=== PATIENT | female | born 1955 | race Caucasian/White ===

== ENCOUNTER 2016-07-19 07:50 | Inpatient (IN) | payer OTHER ==
[2016-07-19] VITALS (18 sets, daily range): BP systolic 93–162; BP diastolic 62–103; PULSE 49–76; RESP 8–20; O2SAT 95–100
[~2016-07-19] VITALS: Ht 144.8 cm; Wt 69.2 kg
[~2016-07-19 07:50] MED LIST: ACET-171 PO; CHOL100045 PO; CeFAZolin 2 Gm/50 mL D5W IV Premix IV ONE; CeFAZolin Inj 2 GM in IV Premix 1 EACH IV SCH; HYDR28.472 TP; LIP40 PO; MELO-253 PO; METO-274 PO; Sodium Chloride LOK Flush 10 mL Syringe IVFLUSH SCH; Vancomycin Dose per Pharmacist XX ONE; Vancomycin Inj 1,000 MG in IV Premix 1 EACH IV ONE
[2016-07-19] MEDS: Lactated Ringer's 1,000 ML IV SCH ×5 (08:00→14:26)
[2016-07-19] MEDS ORDERED: METO-272 PO (08:59)
[2016-07-19] MEDS ORDERED: GABA600T2 PO (08:59)
[2016-07-19] MEDS ORDERED: Ropivacaine-PF 0.5% 30 mL Inj INFILTRATE ONE (10:45)
[2016-07-19] MEDS ORDERED: Lactated Ringer's 500 ML IV PRN (11:17)
[2016-07-19] MEDS ORDERED: Lactated Ringer's 1,000 ML IV SCH (11:17)
--- NOTE | 2016-07-19 11:17 | PCM.HPANE ---
Patient Data Surgeon Admitting Provider: Attending Provider:Gregg Greene DO Primary Care Physician:Jenny Gustafson MD Other Provider:Miladys Higgins Anesthesia Reason for Visit Left Hip Arthritis Ht/WT & BMI Height (Feet): 4 Height (Inches): 9 Weight (Kilograms): 71.39 Body Mass Index 33.00 Allergies Coded Allergies: No Known Allergies (Verified Allergy, Unknown, 07/15/16) Past Anesthesia History Anesthesia History: Denies:: Anesthesia Reactions Diabetes History Hx Diabetes?: No MRSA MRSA: No Medications Blood Thinner: Aspirin Last Dose Blood Thinner: Jul 10, 2016 Hypertension Medication: Yes Home Meds Incl Beta Jenny: Yes (METOPROLOL 100MG ER DAILY) Reported Medications Gabapentin 600 Mg [id number] Mg PO HS Ref 0 07/19/16 Metoprolol Succinate ER 50 Mg Tab.er.24h50 Mg PO HS Ref 0 07/19/16 Cholecalciferol (Vitamin D3) (Vitamin D)1,000 Unit Capsule1,000 Unit PO DAILY # 1 BOTTLE Ref 0 07/15/16 Metoprolol Succinate ER 100 Mg Tab.er.[id number] Mg PO DAILY Ref 0 07/15/16 Meloxicam 15 Mg Tjftao78 Mg PO DAILY 30 Days Ref 0 07/15/16 Hydrocortisone Acetate/Aloe V (Hydrocortisone-Aloe 0.5% Cream)28.4 Gm Cream..g.28.4 Gm TP BID 07/15/16 Atorvastatin (Lipitor)40 Mg Whzvrm23 Mg PO DAILY Ref 0 07/15/16 Acetaminophen 500 Mg Lfaolz329 Mg PO Q6H PRN For Fever 07/15/16 Discontinued Reported Medications Gabapentin 600 Mg Tyfzng613 Mg PO HS Ref 0 07/15/16 History HEENT History: Positive for:: Cataracts Denture Type: Full- Upper Hx of Heart Problems?: Yes Cardiovascular History: Positive for:: Coronary Artery Disease (ELEVATED CHLORESTEROL) Hypertension Hx of Respiratory Problem?: Yes Respiratory History: Positive for:: Pneumonia Hx Neurologic Problems?: No Neurological History: Positive for:: Headaches Hx of GI Problems?: Yes Hx of Problems?: No Skin History: Positive for:: History Skin Disorders? (ECZEMA) Hx Musculoskeletal Problems?: Yes Musculoskeletal History: Positive for:: Degenerative Joint (LEFT KNEE. LEFT HIP) Osteoarthritis Hx of Psycho/Social Problems?: No Hx Surgeries?: Yes (LEFT KNEE SCOPE) Hx Any Other Health Problems?: No Other History: Denies:: Cancer Thyroid Disease History Blood Transfusions: Positive for:: Accept Blood Products? Denies:: Blood Transfusions Hx Diabetes: No Hx Alcohol Use: Yes (SOCIAL)Hx Substance Use: No Stop/Bang S-Snoring: Do You Snore Loudly: Yes T-Tired: feel tired, fatigued: No O-Obsered: Observed not breath: No P-Blood Pressure: treated: Yes B- Body Mass Index > 35 kg/m2: No A- Age over 50: Yes N- Neck Large Circumference: No G- Gender Male: No SHAILESH Total Score: 3 Risk Assessment Category Category 1A: Patient has history of documented sleep apnea, and HAS NOT received any narcotic, sedative or anesthesia administration during this stay. Category 1B: Patient has history of documented sleep apnea, and HAS received any narcotic , sedative or anesthesia administration during this stay Category 2: Patient has SUSPECTED Obstructive Sleep Apnea, and HAS received any narcotic , sedative or anesthesia administration during this stay. Category 3: Patient has SUSPECTED Obstructive Sleep Apnea and HAS NOT received narcotic, sedative or anesthesia administration during this stay. Category 4: Outpatient in Procedural Areas with known sleep apnea or who screen positive for High Risk via the STOP/BANG questionnaire. Exam Exam General Appearance: Alert, Oriented X3, Cooperative, No Acute Distress HEENT/AIRWAY: MP 2 Lungs: Clear to Auscultation, Normal Air Movement Heart: Exam Unremarkable, Regular Rate/Rhythm, No Murmurs/Rubs/Gallops Meds/Labs/Diagnostics Admission Meds Current Medications Lactated Ringer's (Lr) 1,000 ml @ 10 mls/hr Q24H IV Last administered on t 08:00; Start 07/19/16 at 05:00; Stop 07/23/16 at 08:59 Plan Impression Patient chart reviewed, patient interviewed and anesthestic plan with risks, benefits, and alternatives discussed, and informed consent obtained. NPO Status: >8 hrs ASA Physical Status: ASA2 Mod Systemic Disease Anesthetic Plan: SAB Bene/Risks/Altern/Consents: Yes HP Complete Prior to Induction: Yes Gregg Zamorano MD Jul 19, 2016 08:15
[2016-07-19] MEDS ORDERED: Labetalol 5 mg/mL 4 mL Inj IV PRN (11:20)
[2016-07-19] MEDS ORDERED: EPHEDrine Sulfate 50 mg/mL Inj IVPUSH PRN (11:20)
[2016-07-19] MEDS ORDERED: MetoCLOpramide 5 mg/mL 2 mL Inj IVPUSH PRN (11:20)
[2016-07-19] MEDS ORDERED: Dexamethasone 4 mg/mL Inj IVPUSH PRN (11:20)
[2016-07-19] MEDS ORDERED: Phenylephrine 10,000 mCg/mL Inj IVPUSH PRN (11:20)
[2016-07-19] MEDS ORDERED: Ondansetron 2 mg/mL 2 mL Inj IVPUSH PRN ×2 (11:20→12:25)
[2016-07-19] MEDS ORDERED: Atropine 0.4 mg/mL Inj IVPUSH PRN (11:20)
[2016-07-19] MEDS ORDERED: HYDROmorphone 1 mg/mL Inj IVPUSH PRN (11:20)
[2016-07-19] MEDS ORDERED: hydrALAZINE 20 mg/mL Inj IVPUSH PRN (11:20)
[2016-07-19] MEDS ORDERED: fentaNYL-PF 50 mCg/mL 2 mL Inj IVPUSH PRN (11:20)
[2016-07-19] MEDS ORDERED: diphenhydrAMINE 25 mg Capsule PO PRN (12:25)
[2016-07-19] MEDS ORDERED: Magnesium Hydroxide 10 mL Oral Concentration PO PRN (12:25)
[2016-07-19] MEDS ORDERED: Polyethylene Glycol (PEG) 17 Gm Powder PO PRN (12:25)
--- NOTE | 2016-07-19 13:23 | DRSVH ---
PROCEDURE: X-RAY PELVIS W/LAT HIP (LT) ([id number]) INDICATIONS: post op TECHNIQUE: AP pelvis and lateral view of the left hip acquired. COMPARISON: [facility], , XR PELVIS W LATERAL HIP LT, 05/12/2016, 10:25. FINDINGS: Bones: Patient is status post left hip arthroplasty, with hardware components in expected positions. The hip joint appears congruent. The visualized bony structures appear intact. Soft tissues: Overlying postoperative changes are noted. No suspicious soft tissue densities. IMPRESSION: Status post left hip arthroplasty. Dictated by: Callie Mederos M.D. on 07/19/2016 at 13:22 Approved by: Callie Mederos M.D. on 07/19/2016 at 13:22
[2016-07-19] MEDS ORDERED: Lactated Ringer's 1,000 ML IV ONE (13:52)
[2016-07-19] MEDS ORDERED: fentaNYL-PF 50 mCg/mL 2 mL Inj ONE (14:06)
[2016-07-19] MEDS: 0.9% Sodium Chloride 1,000 ML IV SCH ×2 (14:09→23:51)
[2016-07-19] MEDS ORDERED: Phenylephrine 10,000 mCg/mL Inj ONE (14:22)
[2016-07-19] MEDS ORDERED: Bupiv-Spinal 0.75%/Dex 8.25% 2 mL Inj ONE (14:22)
[2016-07-19] MEDS ORDERED: Propofol 10,000 mCg/mL 20 mL Inj ONE (14:22)
[2016-07-19] MEDS: Ketorolac 15 mg/mL Inj IVPUSH PRN ×2 (15:05→21:12)
[2016-07-19] MEDS: HYDROcodone-APAP 5-325 mg Tablet PO PRN ×2 (15:06→16:29)
[2016-07-19] MEDS: Sodium Chloride LOK Flush 10 mL Syringe IV SCH ×2 (16:02→23:51)
--- NOTE | 2016-07-19 17:02 | PCM.ANEP2 ---
Post Anesthesia Evaluation ASA/CMS Post Anesthesia VS in Patient's Normal Range?: Yes Resp Stable; Airway Patent?: Yes CV Function & Hydration Stable: Yes Mental Status Recovered?: Yes Pain control Satisfactory?: Yes N/V Control Satisfactory?: Yes Gregg Zamorano MD Jul 19, 2016 17:02
--- NOTE | 2016-07-19 17:02 | PCM.ANEP1 ---
Post Anesthesia Phase 1 PACU Phase 1 Assessment Vital Signs Vital Signs Date Time Temp Pulse Resp B/P Pulse Ox O2 Delivery O2 Flow Rate FiO2 07/19/16 14:37 73 20 98 Room Air 07/19/16 14:11 36.0 73 20 147/103 98 Room Air 07/19/16 13:47 16 100 07/19/16 13:45 49 12 121/68 100 Room Air 07/19/16 13:31 11 98 07/19/16 13:30 36.1 59 15 116/80 98 Room Air 07/19/16 13:15 56 12 123/70 98 Room Air 07/19/16 13:05 56 12 110/68 96 Room Air 07/19/16 13:05 12 96 07/19/16 13:00 57 12 110/64 98 Room Air 07/19/16 12:55 36.1 58 8 108/64 96 Room Air 07/19/16 12:49 63 12 105/64 99 Room Air 07/19/16 12:45 63 14 99/66 97 Room Air 07/19/16 12:40 14 95 07/19/16 12:40 65 15 97/70 97 Room Air 07/19/16 12:35 65 16 97/62 98 Room Air 07/19/16 12:30 61 14 93/62 95 Room Air 07/19/16 12:25 36.7 70 14 100/68 96 Room Air Anesthetic Administered: SAB Level of Alertness: Awake, talking KAMARA's with Equal Strength: No (No movement or sensation below groins) Pain: No Pain Scale Score: 9 Nausea or Vomiting: No Oxygen Delivery: Room Air Lungs: Clear to Auscultation, Normal Air Movement Dermatome Level: Full Sensation Gregg Zamorano MD Jul 19, 2016 17:02
--- NOTE | 2016-07-19 17:06 | NUR ---
Post-op and urination Pt. transferred from PACU to [facility] around 1355. On arrival, she was alert and talking. She was unable to feel and move her LEs groin down. She started to feel pain 7-8/10 in the late afternoon. PRN Toradol IV and Vicodin PO didn't bring pain level down. Pt. stated she was in pain and using a bedpan was not possible. Bladder scan showed 900 mL urine retention. Edmond catheter inserted per post-op standing order. Pale clear urine drained to bag. Dr. Greene aware of the above info. He will make adjustment to medications to achieve better pain control.
[2016-07-19] MEDS: HYDROmorphone 1 mg/mL Inj IVPUSH PRN (20:38)
[2016-07-19] MEDS: hydrOXYzine Pamoate 25 mg Capsule PO PRN (20:39)
[2016-07-19] MEDS: CeFAZolin Inj 2 GM in IV Premix 1 EACH IV SCH (20:52)
[2016-07-19] MEDS: MeTOProlol XL 50 mg ER24 Tablet PO SCH (20:58)
[2016-07-19] MEDS: Senna-Docusate 8.6-50 mg Tablet PO SCH (20:59)
--- NOTE | 2016-07-19 22:03 | OP ---
[address] [address] OPERATIVE REPORT PATIENT: BYRON HERRERA : 1955 MR#: [id number] ADMIT: 07/19/2016 JOB ID: [id number] DATE OF SURGERY: 07/19/2016 PREOPERATIVE DIAGNOSIS(ES): Left hip degenerative joint disease. POSTOPERATIVE DIAGNOSIS(ES): Left hip degenerative joint disease. PROCEDURE: Left total hip arthroplasty. SURGEON: Gregg Greene DO. GYRO COMPASS TESTER: Michelle Johnson PA-C. INDICATIONS: The patient is a 60-year-old female with left hip severe degenerative arthritis who has failed conservative measures and wished to proceed with a left total hip arthroplasty. We discussed risks, benefits, and possible complications of surgery, including, but not limited to injury to nerves and vessels, infection, bleeding, incomplete relief of symptoms, stiffness, need for additional procedures. The patient had good understanding. All questions were answered. She wished to A director surgical was required for the successful completion of this procedure. PROCEDURE IN DETAIL: The patient was brought to the operating room. She was given a preoperative antibiotic and spinal anesthetic, placed into the lateral decubitus position. The left hip was sterilely prepped and draped. An incision was made centered over the trochanter in line with the femur. Dissection was carefully carried through the subcutaneous tissue. Electrocautery was used for hemostasis. A split was then made in the iliotibial band in line with the skin incision and the Charnley retractor was then placed. She was noted to have an avulsion of her gluteus medius tendon off of the trochanter at this point. A split was made above this in the gluteus medius, and the remainder of the vastus lateralis was released off of the proximal femur just distal to vastus tubercle. A small triangular portion of capsule was then removed and the hip was then surgically dislocated. A provisional neck cut was made about a fingerbreadth above the level of the lesser trochanter and the femoral head was removed. The femur was then prepared beginning with the box osteotome and broached. This was sequentially broached up to a size 4, which seemed to have a bit of space proximally but be tight distally. I tried to broach up to a 5, but it was, I felt, going to be too much of gap to make up and would risk fracture. Therefore, I elected to go with a size 4, which fit fairly well and had good rotational stability. A calcar planer was used to smooth the top of the femur. Next, anterior and posterior acetabular retractors were placed and the pulvinar was removed as was the labrum. The hip was then reamed sequentially up to a 51. I elected to place a [place] 52 shell. Care was taken to ensure the appropriate abduction and anteversion and a single superior dome screw was used to add additional fixation which had excellent purchase. We then did some trials initially with a 36 lateralized liner and then with a 32 neutral liner, and I felt that the 32 neutral liner, coupled with the Depuy Tri-Lock 4 stem and +5 head seemed to equal out her leg lengths, allow for great range of motion and stability. Therefore, these components were chosen and impacted into position. The wound was then closed with #5 Ethibond to close the capsule. The gluteus medius was repaired. I made drill holes into the trochanter to repair the gluteus medius back to the trochanter, and the vastus lateralis was then repaired with #1 Surgilon. The iliotibial band was repaired with #1 running Surgilon and 0-Vicryl. The subcu was closed with a 2-0 V-Loc and the skin was closed with a running subcuticular 3-0 V-Loc. Naropin was added as an adjunct local anesthetic. Sterile dressings were applied. Patient tolerated the procedure well. Blood loss was 100 cc. POSTOPERATIVE PROTOCOL: Have the patient weightbear to tolerance. Use a walker for ambulation. Ice and elevate. Will plan to use aspirin for DVT prophylaxis.
[2016-07-20] MEDS: hydrOXYzine Pamoate 25 mg Capsule PO PRN ×2 (01:31→20:26)
[2016-07-20 01:33] VITALS: BP 107/59; PULSE 60; RESP 18; O2SAT 100
[2016-07-20] MEDS: Ketorolac 15 mg/mL Inj IVPUSH PRN (03:16)
[2016-07-20] MEDS: CeFAZolin Inj 2 GM in IV Premix 1 EACH IV SCH (03:24)
[2016-07-20 06:37] VITALS: BP 104/71; PULSE 80; RESP 18; O2SAT 98
[2016-07-20 07:12] LABS: BASOPHILS % (AUTO) 0.2 % (0-3); EOSINOPHILS % (AUTO) 0.9 % (0-5); MONOCYTES % (AUTO) 8.6 % (4-12); Mean Corpuscular Hemoglobin 32.6 pg (27.0-35.0); Mean Corpuscular Volume 100.3 fL (81-100); NEUTROPHILS % (AUTO) 70.2 % (40-74); Platelet Count 195 bil/L (150-400)
[2016-07-20] MEDS: MeTOProlol XL 50 mg ER24 Tablet PO SCH ×2 (07:41→21:00)
[2016-07-20] MEDS: Senna-Docusate 8.6-50 mg Tablet PO SCH ×2 (07:42→20:28)
[2016-07-20] MEDS: 0.9% Sodium Chloride 1,000 ML IV SCH ×2 (07:45→14:35)
[2016-07-20] MEDS: Sodium Chloride LOK Flush 10 mL Syringe IV SCH ×2 (07:45→16:15)
--- NOTE | 2016-07-20 10:25 | PCM.PNORTH ---
Subjective Date of Service: Jul 20, 2016 Visit Information: Reason for Visit Left Hip Arthritis Surgery/Surgery Date LEFT TOTAL HIP 07/19/16 Post-Op Day # Date of Admission: Jul 19, 2016 at 14:06 Hospital Day # Subjective Found patient alert and awake and sitting up in bed. No complaints of pain at this time. Discussed participation with formal physical therapy as well as discharge plans. Patient indicates that she has a spouse at home which will be helpful to her on discharge. She also indicates she has approximately 10 steps to get to the main floor of her home. She indicates when she is on the main floor she will not have to use steps except to leave the home. She also indicates that her and 2 strong friends had already made plans to move her upstairs in her wheelchair. Patient is anticipating discharge to home with spouse as caregiver. I have talked to her about the pros and cons of these issues and advised her to discuss this with formal physical therapy. I also discussed with patient that her procedure was elective which would preclude her from transferring to a jail facility. She is aware of this and will work with physical therapy on attaining a recommendation for discharge to home if appropriate. Postop General: No Complaints, No Shortness of Breath, No Chest Pain, Good Appetite Pain Management: PO Objective Exam Objective Orientation: Alert and oriented 3 and pleasant. Dressing: Interoperative dressing is clean dry and intact. Wound: Wound is not observed today. Compartments: Thigh and calf are soft and nontender. Mobility/sensation: Mobility and sensation are intact at left lower extremity distally. Edmond: Absent Drain: Absent Gait: Transfered to be VT on postop day 1. No gait with physical therapy and as of this time. Vital Signs and I/O Vital Sign - Last Date Time Temp Pulse Resp B/P Pulse Ox O2 Delivery O2 Flow Rate FiO2 07/20/16 08:19 Supplement Oxygen 07/20/16 06:37 36.8 80 18 104/71 98 07/20/16 01:33 2.00 Intake and Output 07/19/16 07/19/16 07/20/16 Cumulative From/Thru 15:00 23:00 07:00 07/15/16 10:09 - 07/19/16 18:32 Intake Total 2550 ml 1353 ml 3903 ml Output Total 100 ml 750 ml 850 ml Balance 2450 ml 603 ml 3053 ml Intake Oral 1000 ml 1000 ml IV Total 2550 ml 353 ml 2903 ml Output Urine Total 750 ml 750 ml Estimated Blood Loss 100 ml 100 ml Lab & Micro Results Laboratory Tests Test 07/20/16 06:20 White Blood Count 6.4th/mm3 (3.8-10.1) Red Blood Count 2.98mil/mm3 (3.90-5.20) Hemoglobin 9.7g/dL (12.0-15.6) Hematocrit 29.9% (35.0-46.0) Mean Corpuscular Volume 100.3fL (81-100) Mean Corpuscular Hemoglobin 32.6pg (27.0-35.0) Mean Corpuscular Hemoglobin Concent 32.4% (32.0-37.0) Red Cell Distribution Width 12.3% (12.3-15.4) Platelet Count 195bil/L (150-400) Neutrophils (%) (Auto) 70.2% (40-74) Lymphocytes (%) (Auto) 19.9% (14-46) Monocytes (%) (Auto) 8.6% (4-12) Eosinophils (%) (Auto) 0.9% (0-5) Basophils (%) (Auto) 0.2% (0-3) Sodium Level 135mEq/L (134-144) Potassium Level 3.5mEq/L (3.5-5.2) Chloride Level 98mEq/L (97-108) Carbon Dioxide Level 26mmol/L (18-29) Blood Urea Nitrogen 7mg/dL (8-27) Creatinine 0.92mg/dL (0.57-1.00) Estimat Glomerular Filtration Rate 89mL/min (>59) Glucose Level 142mg/dL (60-99) Calcium Level 8.2mg/dL (8.5-10.1) Result Diagram: 07/20/1661907/20/16619 General Appearance: Alert, Oriented X3, Cooperative, No Acute Distress Extremities: No Compartment Syndrom Noted, Thigh & Calf Soft/Nontender Postop Sensory Motor: Distal Motor Intact, Movement in Toes, Distal Sensation Intact Activity: Activity per PT, Ambulate with PT (weightbearing as tolerated on the left lower extremity using a front wheeled walker.) Catheters: None Assessment & Plan Plan Postop day # 1 from a left total hip arthroplasty uncemented performed on 04/[address] Gregg Greene. Weight bearing status: Weightbearing as tolerated on the left lower extremity. Mobility aid: Front wheeled walker Immobilization: None Precautions: Abduction wedge between legs while in bed Physical therapy: Continue formal physical therapy for mobility, gait and safety. Patient indicates she has 10 steps to enter the main living floor of her home and at that point would be free of any stairs until she needs to leave the home. Patient also indicates she has 3 strong men available which have already made a plan to get her into her home using her wheelchair. Pain control: Continue by mouth pain medication as needed with Percocet 5 for [place] 5. DVT prophylaxis: Continue ASA 325 mg EC by mouth twice a day 6 weeks postop for DVT prophylaxis. Wound care: Infectious DZ: None Edmond: Absent Dressing: Interoperative dressing is clean dry and intact. Dressing will be changed on postop day 2. Drain: Absent Nursin-week follow-up: Follow-up in 2 weeks at [facility] orthopedic clinic with mid-level provider for wound check and suture removal. 6-week follow-up: Follow-up in 6 weeks at [facility] orthopedic clinic with Dr. Gregg Greene with AP pelvis and left crosstable lateral hip x-rays on arrival. Discharge plan: Anticipate discharge to home on postop day 3, 07/22/2016 with spouse as caregiver. VTE Prophylaxis: SCDs, BRANDEN Bunch, Other (ASA 325 mg EC by mouth twice a day 6 weeks postop for DVT prophylaxis.) Kevin eHck PA-C Jul 20, 2016 10:25
[2016-07-20] MEDS: oxyCODONE-Acetamin 5-325 mg Tablet PO PRN ×2 (10:26→17:28)
--- NOTE | 2016-07-20 10:47 | NUR ---
Evaluation completed. Please go to "Notes" then click on "Assessments and Notes" (bottom left corner of screen). Then select appropriate discipline tab on top of screen.
--- NOTE | 2016-07-20 13:25 | NUR ---
Social Work Brief Note: EMR reviewed. Patient is a 60 year old female admitted inpatient on 07/19/16 for left hip arthritis. Patient post op day 1 for left total hip. Patient payer as [employer]. Patient emergency contact listed as Mick, . Patient PCP as MD Gustafson. Patient participated with PT. PT to further assess for discharge recommendations. Plans for home vs SNF pending further progression. Patient only ambulated a few steps and mod assist. Patient has cane and walker available for home use. SW will continue to review therapy notes to determine progression. SW provided patient with HHC/SNF choice list for review. SW to follow. PLAN: Home with vs R/O HHC vs SNF, pending further PT eval and clinical course Branden JIMENEZ
[2016-07-20 14:56] VITALS: BP 74/46; PULSE 70; RESP 16; O2SAT 93
[2016-07-20 16:52] VITALS: BP 91/55
--- NOTE | 2016-07-20 17:42 | NUR ---
low BP Pt bp low this afternoon. Fluids turned back on for a brief time. Blood pressure returned to 90's/50/s. Percocet given for pain and this is effective. Pt up in chair today and worked with PT and OT. Eating well, using IS.
[2016-07-20] MEDS: HYDROmorphone 1 mg/mL Inj IVPUSH PRN (20:20)
[2016-07-20 21:01] VITALS: BP 91/58; PULSE 69; RESP 18; O2SAT 97
[2016-07-20] MEDS: HYDROcodone-APAP 5-325 mg Tablet PO PRN (21:42)
[2016-07-21] MEDS: Sodium Chloride LOK Flush 10 mL Syringe IV SCH ×4 (00:30→23:52)
[2016-07-21] MEDS: HYDROcodone-APAP 5-325 mg Tablet PO PRN ×4 (01:45→21:08)
[2016-07-21] MEDS: 0.9% Sodium Chloride 1,000 ML IV SCH ×3 (04:25→22:56)
[2016-07-21 05:51] VITALS: BP 100/66; PULSE 89; RESP 18; O2SAT 93
[2016-07-21 06:44] LABS: BASOPHILS % (AUTO) 0.3 % (0-3); EOSINOPHILS % (AUTO) 1.5 % (0-5); MONOCYTES % (AUTO) 8.2 % (4-12); NEUTROPHILS % (AUTO) 63.8 % (40-74); Platelet Count 195 bil/L (150-400)
[2016-07-21] MEDS: Senna-Docusate 8.6-50 mg Tablet PO SCH ×2 (08:20→20:30)
[2016-07-21] MEDS: MeTOProlol XL 50 mg ER24 Tablet PO SCH ×2 (08:20→20:57)
[2016-07-21] MEDS: hydrOXYzine Pamoate 25 mg Capsule PO PRN (08:29)
[2016-07-21 12:05] VITALS: BP 77/51; PULSE 81; RESP 16; O2SAT 98
[2016-07-21] MEDS ORDERED: 0.9% Sodium Chloride 500 ML IV SCH (13:10)
[2016-07-21 13:12] VITALS: BP 108/68
--- NOTE | 2016-07-21 15:51 | NUR ---
Social Work: Discharge planning Data & Assessment: Dining Room Coordinator met with patient at bedside to request Home Health choice. Patient stated that she has not made a decision and requested that the Dining Room Coordinator follow-up with her tomorrow after she has had a chance to discuss options with her spouse. disc pad knockout worker will follow-up with patient tomorrow for Home Health choice. Plan: Dining Room Coordinator will follow-up with patient on 07/22/15 for home health choice. Ariadna Larson LMSW, ACM
--- NOTE | 2016-07-21 18:05 | PCM.PNORTH ---
Subjective Date of Service: Jul 21, 2016 Visit Information: Reason for Visit Left Hip Arthritis Surgery/Surgery Date LEFT TOTAL HIP 07/19/16 Post-Op Day # 2 Date of Admission: Jul 19, 2016 at 14:06 Hospital Day # Subjective Patient's blood pressure has been low. It was thought that this was partially due to narcotic use and thus patient has been switched from Percocet to [place]. Patient states her pain level has been very high since the switch. She states that after physical therapy, her pain was better. Patient states she has been drinking fluids often and admits that at home her BP fluctuates. She states her and her doctor were struggling with getting it controlled prior to her surgery so she is "not surprised," She was able to perform with PT with little dizziness. Postop General: No Complaints, No Shortness of Breath, No Chest Pain, Good Appetite Pain Management: PO Objective Exam Objective Patient laying in bed Vital Signs and I/O Vital Sign - Last Date Time Temp Pulse Resp B/P Pulse Ox O2 Delivery O2 Flow Rate FiO2 07/21/16 14:00 Room Air 07/21/16 13:12 108/68 07/21/16 12:05 36.7 81 16 98 07/20/16 01:33 2.00 Intake and Output 07/20/16 07/20/16 07/21/16 Cumulative From/Thru 15:00 23:00 07:00 07/15/16 10:09 - 07/21/16 06:13 Intake Total 600 ml 1370 ml 200 ml 6073 ml Output Total 800 ml 200 ml 450 ml 2300 ml Balance -200 ml 1170 ml -250 ml 3773 ml Intake Oral 600 ml 920 ml 200 ml 2720 ml IV Total 450 ml 3353 ml Output Urine Total 800 ml 200 ml 450 ml 2200 ml Estimated Blood Loss 100 ml # Voids 2 2 # Bowel Movements 0 0 0 Lab & Micro Results Laboratory Tests Test 07/21/16 06:25 White Blood Count 6.1th/mm3 (3.8-10.1) Red Blood Count 2.91mil/mm3 (3.90-5.20) Hemoglobin 9.6g/dL (12.0-15.6) Hematocrit 28.8% (35.0-46.0) Mean Corpuscular Volume 99.0fL (81-100) Mean Corpuscular Hemoglobin 33.0pg (27.0-35.0) Mean Corpuscular Hemoglobin Concent 33.3% (32.0-37.0) Red Cell Distribution Width 12.1% (12.3-15.4) Platelet Count 195bil/L (150-400) Neutrophils (%) (Auto) 63.8% (40-74) Lymphocytes (%) (Auto) 26.0% (14-46) Monocytes (%) (Auto) 8.2% (4-12) Eosinophils (%) (Auto) 1.5% (0-5) Basophils (%) (Auto) 0.3% (0-3) Sodium Level 134mEq/L (134-144) Potassium Level 4.2mEq/L (3.5-5.2) Chloride Level 99mEq/L (97-108) Carbon Dioxide Level 23mmol/L (18-29) Blood Urea Nitrogen 12mg/dL (8-27) Creatinine 0.94mg/dL (0.57-1.00) Estimat Glomerular Filtration Rate 86mL/min (>59) Glucose Level 103mg/dL (60-99) Calcium Level 8.3mg/dL (8.5-10.1) Result Diagram: 07/21/1662407/21/16624 General Appearance: Alert, Oriented X3, Cooperative, No Acute Distress Extremities: Distal Pulses Palpable, Warm, No Compartment Syndrom Noted Postop Sensory Motor: Distal Motor Intact, Movement in Toes, Distal Sensation Intact, NVI Distally SURGICAL WOUND : Wound Location/Description Skin is approximated, appears to be healing well. Absent of erythema and drainage. Steri-strips in place. Incision General Appearance: Steri Strips, Well Approximated, Incision Healing Dressing & Drainage Status: Changed Activity: Activity per PT, Ambulate with PT (weightbearing as tolerated on the left lower extremity using a front wheeled walker.) Catheters: None Assessment & Plan Impression POD#2 Left total hip arthroplasty Problems: Plan Weightbearing: Weightbearing as tolerated with a front wheeled walker DVT prophylaxis: Aspirin 325mg BID x6 weeks. Physical therapy for transfers, progressive ambulation, strengthening Wound care: Dressing was changed today. Change if saturated in future. Analgesia: Continue oral pain management Discharge plan: Discharge home in 1-2 days. Start outpatient physical therapy next week. Follow-up plan: In 2 weeks at [facility] with AVEL for wound check and at [address] Greene with x-rays VTE Prophylaxis: SCDs, BRANDEN Bunch, Other (ASA 325 mg EC by mouth twice a day 6 weeks postop for DVT prophylaxis.) Shireen Ramírez PA-C Jul 21, 2016 18:05
--- NOTE | 2016-07-21 19:19 | NUR ---
Blood Pressure, Bowel Movement Patient continues to have somewhat low blood pressures. Patient states that she occasionally had some dizziness but was able to ambulate to the bathroom and work with PT. MD/PA aware, 500 ml bolus given. Care is ongoing. Patient had one bowel movement today, care is ongoing.
[2016-07-21 19:41] VITALS: BP 120/71; PULSE 91; RESP 18; O2SAT 96
[2016-07-22] MEDS: HYDROcodone-APAP 5-325 mg Tablet PO PRN ×2 (03:11→14:59)
--- NOTE | 2016-07-22 05:59 | NUR ---
Mobility / Pain Ambulating slow and steady with FWW to BR. Pain adequately controlled with mix of Tylenol alone or one [place]. B/P has remained within normal limits. Hourly rounding ongoing.
[2016-07-22 06:01] VITALS: BP 109/71; PULSE 73; RESP 20; O2SAT 97
[2016-07-22] MEDS: Senna-Docusate 8.6-50 mg Tablet PO SCH (08:05)
[2016-07-22] MEDS: MeTOProlol XL 50 mg ER24 Tablet PO SCH (08:05)
[2016-07-22] MEDS: Sodium Chloride LOK Flush 10 mL Syringe IV SCH (08:05)
--- NOTE | 2016-07-22 09:39 | PCM.PNORTH ---
Subjective Date of Service: Jul 22, 2016 Visit Information: Reason for Visit Left Hip Arthritis Surgery/Surgery Date LEFT TOTAL HIP 07/19/16 Post-Op Day # Date of Admission: Jul 19, 2016 at 14:06 Hospital Day # Subjective Found patient awake and alert and sitting up in chair beside the bed. No complaints pain at this time. Discussed patient's discharge today and possibility of home health. Also discussed patient's hypotension and encouraged her to push the water and to remain upright as much as possible. I have also advised patient to discontinue the use of Mobic and I will strike this medication from her orders. Discussed continued participation with formal physical therapy today to gain a greater distance and perform stair training in anticipation of discharging to home. Postop General: No Complaints, No Shortness of Breath, No Chest Pain, Good Appetite Pain Management: PO Objective Exam Objective Orientation: Alert and oriented 3 and pleasant. Dressing: Interoperative dressing has been changed island-type dressing without the ends trimmed. This dressing is intact and lightly soiled. Anticipate changing this dressing this morning. Wound: Not observed at this time. Compartments: Calf and thigh are soft and nontender. Mobility/sensation: Calf and thigh are soft and nontender. Abduction wedge: None BRANDEN hose: In place Edmond: None Drain: None Gait: Gait 25-50 feet with physical therapy on 07/21/2016. Recommendation for discharge to home with home health. Vital Signs and I/O Vital Sign - Last Date Time Temp Pulse Resp B/P Pulse Ox O2 Delivery O2 Flow Rate FiO2 07/22/16 06:01 36.8 73 20 109/71 97 Room Air 07/20/16 01:33 2.00 Intake and Output 07/21/16 07/21/16 07/22/16 Cumulative From/Thru 15:00 23:00 07:00 07/15/16 10:09 - 07/22/16 06:37 Intake Total 2290 ml 800 ml 9163 ml Output Total 1200 ml 820 ml 4320 ml Balance 1090 ml -20 ml 4843 ml Intake Oral 1790 ml 800 ml 5310 ml IV Total 500 ml 3853 ml Output Urine Total 1200 ml 820 ml 4220 ml Estimated Blood Loss 100 ml # Voids 2 # Bowel Movements 2 3 5 Result Diagram: 07/21/1662407/21/16624 General Appearance: Alert, Oriented X3, Cooperative, No Acute Distress Extremities: No Compartment Syndrom Noted, Thigh & Calf Soft/Nontender Postop Sensory Motor: Distal Motor Intact, Movement in Toes, Distal Sensation Intact SURGICAL WOUND : Incision General Appearance: Steri Strips, Well Approximated, Incision Healing Dressing & Drainage Status: Changed Activity: Activity per PT, Ambulate with PT (weightbearing as tolerated on the left lower extremity using a front wheeled walker.) Catheters: None Assessment & Plan Plan Postop day # 3 from a left total hip arthroplasty uncemented performed on 04/[address] Gregg Greene. Weight bearing status: Weightbearing as tolerated on the left lower extremity. Mobility aid: Front wheeled walker Immobilization: None Precautions: Abduction wedge between legs while in bed . No active abduction 6 weeks postop. Physical therapy: Continue formal physical therapy for mobility, gait and safety. Patient indicates she has 10 steps to enter the main living floor of her home and at that point would be free of any stairs until she needs to leave the home. Patient also indicates she has 3 strong men available which have already made a plan to get her into her home using her wheelchair. In discussion with patient this morning she has agreed to work diligently on stair training today with physical therapy prior to discharge. We also discussed ascending the stairs in a backward fashion while seated and I reinforced this as a good plan rather than carrying her wheelchair. Pain control: Continue by mouth pain medication as needed with Percocet 5 or [place] 5. May also add Vistaril to either one of these is patient needs additional pain control. Discontinued Mobic secondary to 2 aspirin use and not wanting to NSAIDs on the patient. DVT prophylaxis: Continue ASA 325 mg EC by mouth twice a day 6 weeks postop for DVT prophylaxis. Wound care: Keep wound clean dry and covered until seen in office in 2 weeks. Infectious DZ: None Edmond: Absent Dressing: Interoperative dressing has been changed to island-type dressing which has not been trimmed to allow ventilation. New Island dressing with ends trimmed for ventilation to prevent maceration has been applied today. Drain: Absent Nursing: Please work with patient regarding pain control so that she has adequate pain control without the Mobic use. Please send patient home with a few extra Island dressings. 2-week follow-up: Follow-up in 2 weeks at [facility] orthopedic clinic with mid-level provider for wound check and suture removal. 6-week follow-up: Follow-up in 6 weeks at [facility] orthopedic clinic with Dr. Gregg Greene with AP pelvis and left crosstable lateral hip x-rays on arrival. Discharge plan: Discharge to home today on postop day 3, 07/22/2016 with spouse as caregiver. VTE Prophylaxis: [place]imbola, BRANDEN Bunch, Other (ASA 325 mg EC by mouth twice a day 6 weeks postop for DVT prophylaxis.) Kevin Heck PA-C Jul 22, 2016 09:27
--- NOTE | 2016-07-22 09:42 | PCM.DIORTH ---
Ortho Discharge Instruction Date of Service: Jul 22, 2016 Dates of Hospitalization Date of Hospital Admission Jul 19, 2016 at 14:06 Providers Admitting Physician: Gregg Greene DO Primary Care Physician: Jenny Gustafson MD Attending Physician: Gregg Greene DO Diet Discharge Diet: No restrictions Activity Discharge Activity-General: Try not to overdue, Be up and about, Balance rest and activity, Ice incision 3-5 time/day for 20min, Activity as pain allows, Activity as energy allows, No driving while taking narcotic Left Lower Extremity: Weight Bearing as tolerated (no active abduction at the left hip 6 weeks postop.) Discharge Assist Device: Front Wheeled Walker Dressing and Incisional Care Discharge Dressing Care: Keep dressing clean, dry & intact, Change soiled dressing Discharge Hygiene: May shower (patient may shower but dressing should be kept clean and dry.), DO NOT soak incision under water, NO bathtub, hot tub or whirlpool Additional Instructions Discharge Instructions Postop day # 3 from a left total hip arthroplasty uncemented performed on 04/[address] Gregg Greene. Weight bearing status: Weightbearing as tolerated on the left lower extremity. Mobility aid: Front wheeled walker Immobilization: None Precautions: Abduction wedge between legs while in bed . No active abduction 6 weeks postop. Physical therapy: Continue formal physical therapy for mobility, gait and safety. Patient indicates she has 10 steps to enter the main living floor of her home and at that point would be free of any stairs until she needs to leave the home. Patient also indicates she has 3 strong men available which have already made a plan to get her into her home using her wheelchair. In discussion with patient this morning she has agreed to work diligently on stair training today with physical therapy prior to discharge. We also discussed ascending the stairs in a backward fashion while seated and I reinforced this as a good plan rather than carrying her wheelchair. Pain control: Continue by mouth pain medication as needed with Percocet 5 or [place] 5. May also add Vistaril to either one of these is patient needs additional pain control. Discontinued Mobic secondary to 2 aspirin use and not wanting to NSAIDs on the patient. DVT prophylaxis: Continue ASA 325 mg EC by mouth twice a day 6 weeks postop for DVT prophylaxis. Wound care: Keep wound clean dry and covered until seen in office in 2 weeks. Infectious DZ: None Edmond: Absent Dressing: Interoperative dressing has been changed to island-type dressing which has not been trimmed to allow ventilation. New Island dressing with ends trimmed for ventilation to prevent maceration has been applied today. Drain: Absent Nursing: Please work with patient regarding pain control so that she has adequate pain control without the Mobic use. Please send patient home with a few extra Island dressings. 2-week follow-up: Follow-up in 2 weeks at [facility] orthopedic clinic with mid-level provider for wound check and suture removal. 6-week follow-up: Follow-up in 6 weeks at [facility] orthopedic clinic with Dr. Gregg Greene with AP pelvis and left crosstable lateral hip x-rays on arrival. Discharge plan: Discharge to home today on postop day 3, 07/22/2016 with spouse as caregiver. Follow Up Plan Follow Up Plan Follow-up in 2 weeks, 6 weeks and 12 weeks postoperatively. Follow up when necessary in the interim. Follow-up Provider (F9): Gregg Greene DO Follow-up appointment: Weeks (follow-up in 2 weeks at [facility] orthopedic clinic on prearranged appointment for wound check and suture removal.) Call your provider for: Fever, Chills, Shortness of breath, Vomitting, Drainage at incision Kevin Heck PA-C Jul 22, 2016 09:42
[2016-07-22] MEDS ORDERED: HYDR-4003 PO (09:46)
[2016-07-22] MEDS ORDERED: DOCU-41 PO (09:46)
[2016-07-22] MEDS ORDERED: Aspirin-Expunged Drug, Do Not Renew! PO (09:46)
--- NOTE | 2016-07-22 09:48 | PCM.DC.ORT ---
Discharge Summary Date of Service: Jul 22, 2016 Date of Hospital Admission: Jul 19, 2016 at 14:06 Date of Surgery: Jul 19, 2016 Date of Discharge: Jul 22, 2016 Reason for Hospitalization: Severe left hip osteoarthritis Procedures Performed: Left total hip arthroplasty Hospital Course: Patient was admitted through the preoperative care unit on 07/19/2016 and upon processing was taken to the operating room where her procedure was performed without incident. Upon awakening patient was taken to the postoperative care unit and upon recovery from anesthesia was transferred to the orthopedic care unit where she participated well with formal physical therapy and received a recommendation for discharge to home on 07/22/2016. Problems: (1) Hip arthritis Status: Acute ICD Code: M19.90 Disposition: Discharge to home with family has caregivers Orthopedic Follow up Plan: In Two Weeks in my clinic (follow-up in 2 weeks at [facility] [place] [facility]opedic clinic on prearranged appointment with [facility] for wound check and suture removal.) Discharge Instructions: Postop day # 3 from a left total hip arthroplasty uncemented performed on 04/[address] Gregg Greene. Weight bearing status: Weightbearing as tolerated on the left lower extremity. Mobility aid: Front wheeled walker Immobilization: None Precautions: Abduction wedge between legs while in bed . No active abduction 6 weeks postop. Physical therapy: Continue formal physical therapy for mobility, gait and safety. Patient indicates she has 10 steps to enter the main living floor of her home and at that point would be free of any stairs until she needs to leave the home. Patient also indicates she has 3 strong men available which have already made a plan to get her into her home using her wheelchair. In discussion with patient this morning she has agreed to work diligently on stair training today with physical therapy prior to discharge. We also discussed ascending the stairs in a backward fashion while seated and I reinforced this as a good plan rather than carrying her wheelchair. Pain control: Continue by mouth pain medication as needed with Percocet 5 or [place] 5. May also add Vistaril to either one of these is patient needs additional pain control. Discontinued Mobic secondary to 2 aspirin use and not wanting to NSAIDs on the patient. DVT prophylaxis: Continue ASA 325 mg EC by mouth twice a day 6 weeks postop for DVT prophylaxis. Wound care: Keep wound clean dry and covered until seen in office in 2 weeks. Infectious DZ: None Edmond: Absent Dressing: Interoperative dressing has been changed to island-type dressing which has not been trimmed to allow ventilation. New Island dressing with ends trimmed for ventilation to prevent maceration has been applied today. Drain: Absent Nursing: Please work with patient regarding pain control so that she has adequate pain control without the Mobic use. Please send patient home with a few extra Island dressings. 2-week follow-up: Follow-up in 2 weeks at [facility] [place] orthopedic clinic with mid-level provider for wound check and suture removal. 6-week follow-up: Follow-up in 6 weeks at [facility] [place] orthopedic clinic with Dr. Gregg Greene with AP pelvis and left crosstable lateral hip x-rays on arrival. Discharge plan: Discharge to home today on postop day 3, 07/22/2016 with spouse as caregiver. Management Plan: Patient will be seen at 2 weeks, 6 weeks and 12 weeks postoperatively. Patient will be seen when necessary in the interim. ([Aspirin-Expunged Drug, Do Not Renew!]) 325 MG TABLET 325 MG PO BID Atorvastatin (Lipitor) 40 Mg Tablet 40 MG PO DAILY Cholecalciferol (Vitamin D3) (Vitamin D) 1,000 Unit Capsule 1,000 UNIT PO DAILY Docusate Sodium (Colace) 100 Mg Capsule 100 MG PO BID Gabapentin (Gabapentin) 600 Mg Tablet 600 MG PO HS Hydrocodone-Acetaminophen 5-325 mg (Hydrocodone-Acetaminophen 5-325 mg) 1 Each Tablet 1-2 TABLET PO Q4-6H PRN PRN For Mild Pain Hydrocortisone Acetate/Aloe V (Hydrocortisone-Aloe 0.5% Cream) 28.4 Gm Cream..g. 28.4 GM TP BID Metoprolol Succinate ER (Metoprolol Succinate ER) 100 Mg Tab.er.24h 100 MG PO DAILY Metoprolol Succinate ER (Metoprolol Succinate ER) 50 Mg Tab.er.24h 50 MG PO HS Kevin Heck PA-C Jul 22, 2016 09:48
--- NOTE | 2016-07-22 10:13 | NUR ---
Social Work Continued Discharge Planning: SW conducted discharge planning update. Order for discharge acknowledged. Plan is home with and HHC services. Patient in agreement and states choice as [facility]. HHC choice list offered previously. SW provided access to [facility]. SW also completed face to face and presented to He. He aware of discharge for today and STOC of services to begin 24-48hrs following discharge. Per patient, and friends to assist with getting into home as patient has stair access. Patient declined arrangements of transport via cabulance. No other needs identified. SW to follow. PLAN: Home with and HHC via [facility], pending clinical course. STOC of C 24-48hrs following discharge today Branden JIMENEZ
[2016-07-22] MEDS: 0.9% Sodium Chloride 1,000 ML IV SCH (10:25)
[2016-07-22 10:29] VITALS: BP 98/70; PULSE 77; RESP 22; O2SAT 100
--- NOTE | 2016-07-22 15:50 | NUR ---
Discharge Orders for discharge received. Patient was made aware of the plan and was agreeable to go. The patient was given her scripts and information regarding her diagnosis and treatment, medications, signs and symptoms to be aware of, follow up instructions, supplies and teaching on dressing changes and mobility limitations and directions. The patient signed understanding of this information. The patient's asymptomatic IV was then removed intact and her belongings were gathered and brought to a private vehicle. The patient then ambulated into a wheelchair and was wheeled to the main entrance where she ambulated into a private vehicle. At the time of discharge the patient was alert and oriented, with no complaints of out of control pain, nausea or other difficulties, blood pressure at a stable level, dressing clean dry and intact.
== END 2016-07-22 15:21 | disposition home health service (06) | DRG 470 ==
LOC: SAS 07:50 → OSC 14:06
PROVIDERS: ADMIT Orthopaedic Surgery; ATTEND Orthopaedic Surgery
PROC: 0SRB04A Replacement of Left Hip Joint with Ceramic on Polyethylene Synthetic Substitute, Uncemented, Open Approach (ICD-10-PCS; principal; 2016-07-19 10:15)
DX: M16.12 Unilateral primary osteoarthritis, left hip (principal); I10 Essential (primary) hypertension; I25.10 Atherosclerotic heart disease of native coronary artery without angina pectoris; E78.5 Hyperlipidemia, unspecified

== ENCOUNTER 2017-03-21 08:06 | Inpatient (IN) | payer OTHER ==
[2017-03-21] VITALS (10 sets, daily range): BP systolic 114–144; BP diastolic 64–82; PULSE 54–63; RESP 12–18; O2SAT 94–99
[~2017-03-21] VITALS: Ht 144.8 cm; Wt 69.6 kg
[2017-03-21] MEDS: Lactated Ringer's 1,000 ML IV SCH ×3 (05:00→09:52)
[~2017-03-21 08:06] MED LIST changes: -ACET-171 PO; +ACET325T51 PO; +Bupivacaine Liposome 1.3% 20 mL Inj INFILTRATE ONE; -CeFAZolin 2 Gm/50 mL D5W IV Premix IV ONE; +CeFAZolin Inj 2 GM in IV Premix 1 EACH IV ONE; -CeFAZolin Inj 2 GM in IV Premix 1 EACH IV SCH; +DOCU-41 PO; +GABA600T2 PO; -HYDR28.472 TP; -MELO-253 PO; -METO-274 PO; +METO-369 PO; +METO-394 PO; -Sodium Chloride LOK Flush 10 mL Syringe IVFLUSH SCH; -Vancomycin Dose per Pharmacist XX ONE
[2017-03-21] MEDS ORDERED: Bupivacaine-MPF 0.25%/EPI 30 mL Inj INFILTRATE ONE (09:52)
[2017-03-21] MEDS ORDERED: 0.9% Sodium Chloride 10 mL Inj INFILTRATE ONE (09:52)
[2017-03-21] MEDS ORDERED: Bupivacaine Liposome 1.3% 20 mL Inj INFILTRATE ONE (09:52)
[2017-03-21] MEDS ORDERED: Lactated Ringer's 500 ML IV PRN (11:02)
[2017-03-21] MEDS ORDERED: Lactated Ringer's 1,000 ML IV SCH (11:02)
[2017-03-21] MEDS ORDERED: MetoCLOpramide 5 mg/mL 2 mL Inj IVPUSH PRN (11:05)
[2017-03-21] MEDS ORDERED: Atropine 0.4 mg/mL Inj IVPUSH PRN (11:05)
[2017-03-21] MEDS ORDERED: HYDROmorphone 1 mg/mL Inj IVPUSH PRN ×2 (11:05→12:00)
[2017-03-21] MEDS ORDERED: Ondansetron 2 mg/mL 2 mL Inj IVPUSH PRN ×2 (11:05→12:00)
[2017-03-21] MEDS ORDERED: Phenylephrine 10,000 mCg/mL Inj IVPUSH PRN (11:05)
[2017-03-21] MEDS ORDERED: Labetalol 5 mg/mL 20 mL Inj IV PRN (11:05)
[2017-03-21] MEDS ORDERED: fentaNYL-PF 50 mCg/mL 2 mL Inj IVPUSH PRN (11:05)
[2017-03-21] MEDS ORDERED: EPHEDrine Sulfate 50 mg/mL Inj IVPUSH PRN (11:05)
--- NOTE | 2017-03-21 11:05 | PCM.HPANE ---
Patient Data Surgeon Admitting Provider: Attending Provider:Gregg Greene DO Primary Care Physician:Jenny Gustafson MD Other Provider:Miladys Higgins Anesthesia Reason for Visit Left Knee Arthritis Ht/WT & BMI Height (Feet): 4 Height (Inches): 9.00 Weight (Kilograms): 69.600 Body Mass Index 33.00 Allergies Coded Allergies: No Known Allergies (Verified Allergy, Unknown, 03/14/17) Past Anesthesia History Anesthesia History: Denies:: Abnormal Airway, Anesthesia Reactions, Difficult Intubation, Fam Anesthesia Reaction, Fam Malignant Hypertherm, Malignant Hyperthermia Diabetes History Hx Diabetes?: No MRSA MRSA: No Medications Blood Thinner: Aspirin Last Dose Blood Thinner: Feb 28, 2017 Hypertension Medication: Yes (metoprolol) Home Meds Incl Beta Jenny: Yes Date Beta Jenny Taken: Mar 20, 2017 Time Beta Jenny Taken: 1999 Active Scripts Docusate Sodium (Colace)100 Mg [id number] Mg PO BID constipation #30 CAPSULE Prov:Kevin Heck PA-C 07/22/16 Reported Medications Acetaminophen 325 Mg [id number] Mg PO BID PRN For Fever Ref 0 03/14/17 Gabapentin 600 Mg [id number] Mg PO HS Ref 0 07/19/16 Metoprolol Succinate ER 50 Mg Tab.er.24h50 Mg PO HS Ref 0 07/19/16 Cholecalciferol (Vitamin D3) (Vitamin D)1,000 Unit Capsule1,000 Unit PO DAILY # 1 BOTTLE Ref 0 07/15/16 Metoprolol Succinate ER 100 Mg Tab.er.07m120 Mg PO DAILY Ref 0 07/15/16 Atorvastatin (Lipitor)40 Mg [id number] Mg PO DAILY Ref 0 07/15/16 Discontinued Reported Medications Hydrocortisone Acetate/Aloe V (Hydrocortisone-Aloe 0.5% Cream)28.4 Gm Cream..g.28.4 Gm TP BID 07/15/16 Discontinued Scripts Hydrocodone-Acetaminophen 5-325 mg 1 Each Tablet1-2 Tablet PO Q4-6H PRN For Mild Pain #80 TABLET Prov:Kevin Heck PA-C 07/22/16 [Aspirin] 325 MG TABLET No Conflict [id number] Mg PO BID DVT prophylaxis #1 BOTTLE Prov:Kevin Heck PA-C 07/22/16 History History of ENT Problems?: No HEENT History: Denies:: Abnormal Airway Cataracts (repaired) Difficult Intubation Dysphagia Glaucoma Hearing Problem Sinus Problem TMJ Denture Type: Full- Upper Teeth Condition: Within Normal Limits Hx of Heart Problems?: Yes Cardiovascular History: Positive for:: Hypertension Other History/Comments No CP or hx [place] Hx of Respiratory Problem?: No Respiratory History: Positive for:: Pneumonia (10 yrs ago) Denies:: Use of C-PAP Machine Use of Inhalers / NEBS Hx Neurologic Problems?: No Neurological History: Denies:: Alzheimer's Disease CVA Dementia Dizziness Headaches Multiple Sclerosis Parkinson's Disease Seizures TIA Hx of GI Problems?: No Hx of Problems?: No Genitourinary History: Denies:: HX of Hemodialysis Urinary Tract Infection HX of Peritoneal Dialysis: No Female Hx: Denies:: Problems with Breasts? Skin History: Positive for:: History Skin Disorders? (Eczema) Denies:: Pressure Ulcers Hx Musculoskeletal Problems?: Yes Musculoskeletal History: Positive for:: Degenerative Joint Joint Replacement (L Hip) Osteoarthritis Denies:: Back Injury Fibromyalgia Musculoskeletal Trauma Myasthenia Gravis Rheumatoid Arthritis Systemic Lupus Hx of Psycho/Social Problems?: No Hx Surgeries?: Yes (Hip fracture) Hx Any Other Health Problems?: No Other History: Positive for:: Hospitalization (Jul 2016 Hip fracture) Denies:: Cancer Endocrine Disease Thyroid Disease History Blood Transfusions: Positive for:: Accept Blood Products? Denies:: Blood Transfusions Hx Diabetes: No Hx Alcohol Use: YesAlcoholic Drinks Per Day: 1-2 glasses of wine a weekHx Substance Use: No Stop/Bang S-Snoring: Do You Snore Loudly: No T-Tired: feel tired, fatigued: No O-Obsered: Observed not breath: No P-Blood Pressure: treated: Yes B- Body Mass Index > 35 kg/m2: No A- Age over 50: Yes N- Neck Large Circumference: No G- Gender Male: No SHAILESH Total Score: 2 Risk Assessment Category Category 1A: Patient has history of documented sleep apnea, and HAS NOT received any narcotic, sedative or anesthesia administration during this stay. Category 1B: Patient has history of documented sleep apnea, and HAS received any narcotic , sedative or anesthesia administration during this stay Category 2: Patient has SUSPECTED Obstructive Sleep Apnea, and HAS received any narcotic , sedative or anesthesia administration during this stay. Category 3: Patient has SUSPECTED Obstructive Sleep Apnea and HAS NOT received narcotic, sedative or anesthesia administration during this stay. Category 4: Outpatient in Procedural Areas with known sleep apnea or who screen positive for High Risk via the STOP/BANG questionnaire. Exam Exam Vital Signs Vital Signs Date Time Temp Pulse Resp B/P Pulse Ox O2 Delivery O2 Flow Rate FiO2 03/21/17 08:35 36.2 60 16 144/77 97 Room Air 03/21/17 08:22 36.2 60 16 144/77 97 Room Air General Appearance: Alert, Oriented X3 HEENT/AIRWAY: MP 2, Neck Movement (FROM) Lungs: Clear to Auscultation, Clear to Percussion Heart: Exam Unremarkable, Regular Rate/Rhythm Meds/Labs/Diagnostics Admission Meds Current Medications Vancomycin/0.9 % Sod Chloride 1000 mg/Premix 200 ml @ 200 mls/hr PREOP ONCE IV Last administered on 03/21/17 08:35; Start 03/21/17 at 06:00; Stop at 06:59; Status DC Lactated Ringer's (Lr) 1,000 ml @ 120 mls/hr Q8H20M IV Last administered on 08:10; Start 03/21/17 at 05:00; Stop 03/21/17 at 13:19 Plan Impression Patient chart reviewed, patient interviewed and anesthestic plan with risks, benefits, and alternatives discussed, and informed consent obtained. ASA Physical Status: ASA2 Mod Systemic Disease Anesthetic Plan: Regional Block (FNB (adductor canal block) L sided for post- op pain control per surgeon request), SAB Bene/Risks/Altern/Consents: Yes HP Complete Prior to Induction: Yes Wayne Warren MD Mar 21, 2017 09:25
[2017-03-21] MEDS ORDERED: Polyethylene Glycol (PEG) 17 Gm Powder PO PRN (12:00)
[2017-03-21] MEDS ORDERED: Magnesium Hydroxide 10 mL Oral Concentration PO PRN (12:00)
[2017-03-21] MEDS ORDERED: diphenhydrAMINE 25 mg Capsule PO PRN (12:00)
[2017-03-21] MEDS ORDERED: Ketorolac 15 mg/mL Inj IVPUSH PRN (12:00)
[2017-03-21] MEDS ORDERED: Acetaminophen IV 1,000 MG in IV Premix 1 EACH IV ONE (12:00)
--- NOTE | 2017-03-21 12:47 | PCM.ANEP1 ---
Post Anesthesia PACU Phase 1 Assessment Vital Signs Vital Signs Date Time Temp Pulse Resp B/P Pulse Ox O2 Delivery O2 Flow Rate FiO2 03/21/17 12:42 14 99 03/21/17 12:35 56 14 114/69 99 03/21/17 12:30 58 13 118/66 99 03/21/17 12:25 54 12 127/64 99 Room Air 03/21/17 12:20 36.5 59 16 127/64 99 Room Air 03/21/17 08:35 36.2 60 16 144/77 97 Room Air 03/21/17 08:22 36.2 60 16 144/77 97 Room Air Anesthetic Administered: SAB Level of Alertness: Awake, talking KAMARA's with Equal Strength: No (sab) Pain: No Nausea or Vomiting: No CV Function & Hydration Stable: Yes Airway Device: Lungs: Clear to Auscultation, Clear to Percussion Dermatome Level: T12 (Symphysis Pubis) PACU Phase 2 Assessment Complications: No Follow up Care: No Patient Instructions Provided: N/A Wayne Warren MD Mar 21, 2017 12:47
[2017-03-21] MEDS ORDERED: fentaNYL-PF 50 mCg/mL 2 mL Inj ONE (12:54)
[2017-03-21] MEDS ORDERED: Propofol 10,000 mCg/mL 20 mL Inj ONE (12:54)
[2017-03-21] MEDS ORDERED: Glycopyrrolate 0.2 MG/ML 1mL Inj ONE (12:54)
[2017-03-21] MEDS ORDERED: EPHEDrine/NS 5 mg/mL 5 mL Syringe ONE (12:54)
--- NOTE | 2017-03-21 13:04 | DRSVH ---
PROCEDURE: X-RAY LEFT KNEE, ONE OR TWO VIEWS ([id number]) INDICATIONS: post op TECHNIQUE: 2 view(s) of the knee acquired. COMPARISON: None. FINDINGS: Bones: Patient is status post knee joint arthroplasty. Hardware components are in expected position s. Visualized bony structures are intact. Soft tissues: Overlying postoperative changes are noted. IMPRESSION: Expected postsurgical change for left knee arthroplasty. Dictated by: Barbara Ba MD, PhD on 03/21/2017 at 13:03 Approved by: Barbara Ba MD, PhD on 03/21/2017 at 13:03
[2017-03-21] MEDS: 0.9% Sodium Chloride 1,000 ML IV SCH (13:20)
--- NOTE | 2017-03-21 14:27 | NUR ---
POST OP Patient arrived to floor on hospital bed, alert and oriented. Answering all questions appropriately. No c/o nausea or pain. Gave ice chips and ice water. Able to wiggle toes and move feet bilaterally. Left knee wrapped with renata wrap. Good pedal pulse in L foot. SCD on RLE. IV fluids started. Oriented to room.
--- NOTE | 2017-03-21 14:55 | OP ---
[address] [address] OPERATIVE REPORT PATIENT: BYRON HERRERA : 1955 MR#: [id number] ADMIT: 03/21/2017 JOB ID: [id number] DATE OF SURGERY: 03/21/2017 PREOPERATIVE DIAGNOSIS(ES): Left knee degenerative joint disease. POSTOPERATIVE DIAGNOSIS(ES): Left knee degenerative joint disease. PROCEDURE: Left total knee arthroplasty. SURGEON: Gregg Greene DO CUSTOMER LOYALTY REPRESENTATIVE: Smita Johnson PA-C INDICATIONS: The patient is a 61-year-old female with left knee pain secondary to degenerative arthritis with failed conservative measures who wished to proceed with a left total knee arthroplasty. We discussed the risks, benefits, and possible complications of surgery. All questions were answered. She wished to proceed. A surgical dressing maker was required for the successful completion of this procedure. PROCEDURE IN DETAIL: The patient is brought to the operating room. She was given a preoperative antibiotic and 1 g TXA preoperatively. The left lower extremity was sterilely prepped and draped. A tourniquet was used for hemostasis. An incision was made over the anteromedial knee and dissection was carefully carried through the subcutaneous tissue and down onto the proximal medial tibial face. A small subperiosteal medial release was performed. The patella was then everted and the menisci were removed, the anterior portion, as well as a portion of the fat pad. The femur was instrumented with an intramedullary lorna followed by the distal femoral cutting jig with 5 degrees of distal valgus cut angle. I planned for initial resection of 10, but felt that this was inadequate and went up to 12. Next, the tibia was addressed using an extramedullary tibial cutting block. This was cut just below the defect medially, but it was felt to be inadequate and two additional millimeters were resected. Next, the remainder of the menisci were removed and the femur was then sized, felt to be a size 6 with 3 degrees of external rotation. The distal femoral cuts were performed. The box cut was performed. The knee was then trialed and seemed to work well with the six femur, four tibia. She did have a bit of a bony defect on the medial aspect, but it was quite small, less than a cm in size, and I felt this could simply be filled with cement rather than have a sizing mismatch on the femur and tibia. The femur was drilled. The tibia was drilled and punched. The patella was resurfaced with a free hand type technique, cut from an initial thickness of 25 to a thickness of 15. The components were then cemented into position beginning with the DePuy Attune fixed bearing 4 tibia, followed by the DePuy Attune posterior stabilized 6 femur and the 32 mm patellar button. All excess cement was removed and a mixture of Exparel, Marcaine, and saline was added as an adjunct local anesthetic in the posterior knee and into the soft tissues. The tourniquet was then let down after the cement had been allowed to polymerize. We placed a 5 mm thick poly and electrocautery was used for hemostasis. The wound was then again irrigated and closed with #1 Ethibond to repair the capsule, as well as 0-Vicryl and 2-0 to close the subcu. The skin was closed with a running subcuticular Stratafix suture. Sterile dressings were applied. The patient tolerated the procedure well. BLOOD LOSS: 50 mL. POSTOPERATIVE PROTOCOL: Have the patient weightbear to tolerance. Use a walker for ambulation. Will plan to use [place] for postop pain and aspirin for DVT prophylaxis.
[2017-03-21] MEDS: HYDROcodone-APAP 7.5-325 mg Tablet PO PRN ×2 (15:09→19:45)
[2017-03-21] MEDS ORDERED: CeFAZolin Inj 2 GM in IV Premix 1 EACH IV SCH (16:30)
[2017-03-21] MEDS: Sodium Chloride LOK Flush 10 mL Syringe IV SCH ×2 (16:35→23:45)
[2017-03-21] MEDS: CeFAZolin Inj 2 GM in IV Premix 1 EACH IV SCH (18:57)
[2017-03-21] MEDS: Senna-Docusate 8.6-50 mg Tablet PO SCH (20:30)
[2017-03-21] MEDS: MeTOProlol XL 50 mg ER24 Tablet PO SCH (21:32)
[2017-03-22] MEDS: HYDROcodone-APAP 7.5-325 mg Tablet PO PRN ×4 (00:23→21:49)
[2017-03-22] MEDS: 0.9% Sodium Chloride 1,000 ML IV SCH ×3 (00:24→17:59)
[2017-03-22] MEDS: CeFAZolin Inj 2 GM in IV Premix 1 EACH IV SCH (02:35)
--- NOTE | 2017-03-22 04:17 | NUR ---
Pain Pt. reports pain in left knee. PO 2 tabs [place] 7.5 given and effective for pain. Pt. ambulated to bedside commode well, and had a smear BM. Will continue to monitor.
[2017-03-22 04:35] VITALS: BP 113/74; PULSE 62; RESP 16; O2SAT 97
--- NOTE | 2017-03-22 06:23 | NUR ---
Edmond Edmond d/c'd ~ 6 AM. Pt. tolerated procedure well. 10cc of saline taken out of balloon. Pt. education given on voiding trial.
[2017-03-22 07:16] LABS: BASOPHILS % (AUTO) 0.1 % (0-3); EOSINOPHILS % (AUTO) 1.3 % (0-5); MONOCYTES % (AUTO) 8.5 % (4-12); Mean Corpuscular Hemoglobin 33.8 pg (27.0-35.0); Mean Corpuscular Volume 104.5 fL (81-100); Platelet Count 177 bil/L (150-400)
--- NOTE | 2017-03-22 08:04 | PCM.PNORTH ---
Subjective Date of Service: Mar 22, 2017 Visit Information: Reason for Visit Left Knee Arthritis Surgery/Surgery Date LEFT TOTAL KNEE 03/21/17 Post-Op Day # 1 Date of Admission: Mar 21, 2017 at 12:53 Hospital Day # Subjective Patient complains of incisional pain. She has been out of bed twice. Her nurse reports that she has maxed out her Tylenol limitation. She requests oxycodone be ordered as an alternative medication. Postop General: No Shortness of Breath, No Chest Pain, Good Appetite Pain Management: PO Objective Exam Objective Patient is seen sitting up in bed with her at bedside Vital Signs and I/O Vital Sign - Last Date Time Temp Pulse Resp B/P Pulse Ox O2 Delivery O2 Flow Rate FiO2 03/22/17 04:35 36.5 62 16 113/74 97 Room Air Intake and Output 03/21/17 03/21/17 03/22/17 Cumulative From/Thru 15:00 23:00 07:00 03/14/17 12:56 - 03/22/17 06:18 Intake Total 1470 ml 1326 ml 2748 ml 5544 ml Output Total 700 ml 700 ml 850 ml 2250 ml Balance 770 ml 626 ml 1898 ml 3294 ml Intake Oral 840 ml 1500 ml 2340 ml IV Total 1470 ml 486 ml 1248 ml 3204 ml Output Urine Total 650 ml 700 ml 850 ml 2200 ml Estimated Blood Loss 50 ml 50 ml # Bowel Movements 1 1 2 Lab & Micro Results Laboratory Tests Test 03/22/17 06:10 White Blood Count 6.7th/mm3 (3.8-10.1) Red Blood Count 3.14mil/mm3 (3.90-5.20) Hemoglobin 10.6g/dL (12.0-15.6) Hematocrit 32.8% (35.0-46.0) Mean Corpuscular Volume 104.5fL (81-100) Mean Corpuscular Hemoglobin 33.8pg (27.0-35.0) Mean Corpuscular Hemoglobin Concent 32.3% (32.0-37.0) Red Cell Distribution Width 12.9% (12.3-15.4) Platelet Count 177bil/L (150-400) Neutrophils (%) (Auto) 77.0% (40-74) Lymphocytes (%) (Auto) 12.7% (14-46) Monocytes (%) (Auto) 8.5% (4-12) Eosinophils (%) (Auto) 1.3% (0-5) Basophils (%) (Auto) 0.1% (0-3) Sodium Level 137mEq/L (134-144) Potassium Level 4.1mEq/L (3.5-5.2) Chloride Level 101mEq/L (97-108) Carbon Dioxide Level 22mmol/L (18-29) Blood Urea Nitrogen 6mg/dL (8-27) Creatinine 0.65mg/dL (0.57-1.00) Estimat Glomerular Filtration Rate 132mL/min (>59) Glucose Level 105mg/dL (60-99) Calcium Level 8.4mg/dL (8.5-10.1) Result Diagram: 03/22/1760903/22/17609 General Appearance: Alert, Oriented X3, Cooperative, No Acute Distress Extremities: Distal Pulses Palpable, No Compartment Syndrom Noted, Thigh & Calf Soft/Nontender Postop Sensory Motor: Distal Motor Intact, Distal Sensation Intact, NVI Distally SURGICAL WOUND : Wound Location/Description Left knee: Surgical dressing is clean, dry and intact Activity: Activity per PT Catheters: None Assessment & Plan Impression Status post left total knee arthroplasty Problems: Plan Weightbearing: Weightbearing as tolerated with front wheeled walker DVT prophylaxis: aspirin 325 mg twice a day 6 weeks Physical therapy for transfers, progressive ambulation, therapeutic exercise Wound care: PA will change dressing on postop day 2 Mayito burnham DC'romy this morning Analgesia: Oxycodone 5-10 mg by mouth every 4 hours when necessary pain is ordered Discharge plan: Discharge home tomorrow. Start outpatient physical therapy next week Follow-up plan: In 2 weeks at [facility] [place] with AVEL for wound check and at [address] Greene with x-rays Pain Management: [place] 7.5/325 mg, Toradol VTE Prophylaxis: SCDs, Other (aspirin 325 mg twice a day) Resuscitation Status: CPR: Attempt Resuscitation [place]ote[place]Smita Guillen PA-C Mar 22, 2017 08:04
[2017-03-22] MEDS: hydrOXYzine Pamoate 25 mg Capsule PO PRN ×4 (08:08→21:49)
[2017-03-22] MEDS: Sodium Chloride LOK Flush 10 mL Syringe IV SCH ×2 (08:40→17:35)
[2017-03-22] MEDS: Senna-Docusate 8.6-50 mg Tablet PO SCH ×2 (08:45→21:48)
[2017-03-22 08:46] VITALS: BP 105/70; PULSE 67
[2017-03-22] MEDS: MeTOProlol XL 50 mg ER24 Tablet PO SCH ×2 (08:46→21:49)
--- NOTE | 2017-03-22 09:03 | NUR ---
Pain Patient reported 5/10 knee pain, increasing. 10mg of Oxycodone and 25 mg Vistaril given. Denies nausea at this time. Ice applied to knee. Patient repositions self for comfort. Call light and tray table within reach. Will continue to monitor patient hourly.
--- NOTE | 2017-03-22 10:45 | NUR ---
Social Work: Initial Assessment/Readiness for D/C/Multidisciplinary Rounds D: EMR reviewed. Please see Initial Assessment linked to this note for more information. Pt is a 61 year old female admitted [place] for elective left TKA per H&P. Pt's insurance is [employer] [facility]. PCP is Jenny Gustafson MD. Pt discussed in multidisciplinary rounds, pt is POD 1. Pt is likely to discharge home, no needs. PT to continue to work with pt today. SW met with pt at bedside to conduct initial assessment. Pt was alert and oriented x3. SW explained role and wrote phone number on white board. SW provided [facility] Discharge Planning Checklist and encouraged pt to contact SW for any discharge planning questions. Pt lives at home with her spouse in [place]. Pt is independent with all ADLs at baseline. Pt uses no DME at baseline, but has a walker available for use at discharge. Pt drives. Pt has history of [facility] RN PT OT but no SNF history. Pt has no LTC or VA benefits. Pt has no DPOA on file, SW requested copy of pt's DPOA. Pt agreeable. Pt is likely to d/c home with to transport via POV. SW will continue to follow. A: Pt who is independent at baseline and has the capacity for self-care. P: Pt anticipated to discharge home with to transport via POV. No SW needs identified, no MD orders received at this time. PT will continue to work with pt. SW will continue to follow for needs until time of discharge. TONY Good Addendum: 03/22/17 at 1047 by TERRY RAMIREZ Amended: Links added.
[2017-03-22 15:32] VITALS: BP 109/49; PULSE 67; RESP 18; O2SAT 93
[2017-03-22 20:10] VITALS: BP 123/80; PULSE 63; RESP 18; O2SAT 94
[2017-03-23] MEDS: 0.9% Sodium Chloride 1,000 ML IV SCH ×2 (03:18→13:59)
--- NOTE | 2017-03-23 03:45 | NUR ---
Pain Pt. reported severe pain earlier in shift. PO Roxycodone given. Pt. fell asleep afterwards, and has been sleeping well. Will continue to monitor.
[2017-03-23] MEDS: Sodium Chloride LOK Flush 10 mL Syringe IV SCH ×3 (04:48→16:06)
[2017-03-23] MEDS: HYDROcodone-APAP 7.5-325 mg Tablet PO PRN ×4 (04:48→17:09)
[2017-03-23] MEDS: hydrOXYzine Pamoate 25 mg Capsule PO PRN ×3 (04:48→17:09)
[2017-03-23 04:50] VITALS: BP 126/82; PULSE 64; RESP 20; O2SAT 100
[2017-03-23 05:53] LABS: BASOPHILS % (AUTO) 0.1 % (0-3); EOSINOPHILS % (AUTO) 0.7 % (0-5); MONOCYTES % (AUTO) 12.5 % (4-12); Mean Corpuscular Hemoglobin 33.9 pg (27.0-35.0); Mean Corpuscular Volume 104.3 fL (81-100); NEUTROPHILS % (AUTO) 67.8 % (40-74); Platelet Count 186 bil/L (150-400)
--- NOTE | 2017-03-23 08:28 | PCM.PNORTH ---
Subjective Date of Service: Mar 23, 2017 Visit Information: Reason for Visit Left Knee Arthritis Surgery/Surgery Date LEFT TOTAL KNEE 03/21/17 Post-Op Day # 2 Date of Admission: Mar 21, 2017 at 12:53 Hospital Day # Subjective Patient walked a little bit in her room yesterday with therapy. She became quite sleepy after taking oxycodone. She feels more awake and alert today. She is already out of bed and sitting up in a chair. Postop General: No Shortness of Breath, No Chest Pain, Good Appetite Pain Management: PO Objective Exam Objective Patient is seen sitting up in a chair Vital Signs and I/O Vital Sign - Last Date Time Temp Pulse Resp B/P Pulse Ox O2 Delivery O2 Flow Rate FiO2 03/23/17 04:50 36.9 64 20 126/82 100 Room Air Intake and Output 03/22/17 03/22/17 03/23/17 Cumulative From/Thru 15:00 23:00 07:00 03/14/17 12:56 - 03/23/17 06:37 Intake Total 700 ml 700 ml 6944 ml Output Total 200 ml 1650 ml 4100 ml Balance 500 ml -950 ml 2844 ml Intake Oral 700 ml 700 ml 3740 ml IV Total 3204 ml Output Urine Total 200 ml 1650 ml 4050 ml Estimated Blood Loss 50 ml # Voids 2 2 # Bowel Movements 0 0 2 Lab & Micro Results Laboratory Tests Test 03/23/17 05:10 White Blood Count 8.4th/mm3 (3.8-10.1) Red Blood Count 3.04mil/mm3 (3.90-5.20) Hemoglobin 10.3g/dL (12.0-15.6) Hematocrit 31.7% (35.0-46.0) Mean Corpuscular Volume 104.3fL (81-100) Mean Corpuscular Hemoglobin 33.9pg (27.0-35.0) Mean Corpuscular Hemoglobin Concent 32.5% (32.0-37.0) Red Cell Distribution Width 12.8% (12.3-15.4) Platelet Count 186bil/L (150-400) Neutrophils (%) (Auto) 67.8% (40-74) Lymphocytes (%) (Auto) 18.7% (14-46) Monocytes (%) (Auto) 12.5% (4-12) Eosinophils (%) (Auto) 0.7% (0-5) Basophils (%) (Auto) 0.1% (0-3) Sodium Level 139mEq/L (134-144) Potassium Level 4.0mEq/L (3.5-5.2) Chloride Level 103mEq/L (97-108) Carbon Dioxide Level 25mmol/L (18-29) Blood Urea Nitrogen 7mg/dL (8-27) Creatinine 0.85mg/dL (0.57-1.00) Estimat Glomerular Filtration Rate 97mL/min (>59) Glucose Level 100mg/dL (60-99) Calcium Level 8.9mg/dL (8.5-10.1) Result Diagram: 03/23/1750903/23/17509 General Appearance: Alert, Oriented X3, Cooperative, No Acute Distress Extremities: Distal Pulses Palpable, No Compartment Syndrom Noted, Thigh & Calf Soft/Nontender Postop Sensory Motor: Distal Motor Intact, Distal Sensation Intact, NVI Distally SURGICAL WOUND : Wound Location/Description Left knee: Surgical dressing is removed. The wound is well approximated and Steri-Strips are in place. There is no drainage or erythema seen. The wound is cleansed with hydrogen peroxide. The wound is dressed with Silverlon and ABD pad held in place with an renata wrap Activity: Activity per PT Catheters: None Assessment & Plan Impression POD 2 status post left total knee arthroplasty Problems: Plan Weightbearing: Weightbearing as tolerated with front wheeled walker DVT prophylaxis: aspirin 325 mg twice a day 6 weeks Physical therapy for transfers, progressive ambulation, therapeutic exercise Wound care: Dressing changed to silverlon and ABD Patient became quite sleepy with oxycodone yesterday. It may be too strong for her. Analgesia: DC Oxycodone. Recommend staying with [place] and Vistaril Discharge instructions are reviewed with the patient Discharge plan: Discharge home today if she mobilizes better with PT today. Start outpatient physical therapy next week Follow-up plan: In 2 weeks at [facility] with PA for wound check and at [address] Greene with x-rays Pain Management: [place] 7.5, Vistaril, Toradol, oxycodone 5-10 mg VTE Prophylaxis: SCDs, Other (aspirin 325 mg twice a day) Resuscitation Status: CPR: Attempt Resuscitation Smita Johnson PA-C Mar 23, 2017 08:28
[2017-03-23] MEDS: Senna-Docusate 8.6-50 mg Tablet PO SCH (09:06)
[2017-03-23] MEDS: MeTOProlol XL 50 mg ER24 Tablet PO SCH (09:17)
[2017-03-23 09:19] VITALS: BP 105/69; PULSE 69; RESP 18; O2SAT 94
--- NOTE | 2017-03-23 09:25 | PCM.DIORTH ---
Ortho Discharge Instruction Date of Service: Mar 23, 2017 Dates of Hospitalization Date of Hospital Admission Mar 21, 2017 at 12:53 Providers Admitting Physician: Gregg Greene DO Primary Care Physician: Jenny Gustafson MD Attending Physician: Gregg Greene DO Diet Discharge Diet: No restrictions Activity Discharge Activity-General: Try not to overdue, Be up and about, Balance rest and activity, Elevate & ice extremity Left Lower Extremity: Weight Bearing as tolerated Discharge Assist Device: Front Wheeled Walker Dressing and Incisional Care Discharge Dressing Care: Keep dressing clean, dry & intact Discharge Hygiene: May shower (see instructions below) Additional Instructions Discharge Instructions Weightbearing as tolerated with walker Every hour of the day that you awake, get up and move - either do exercises, bending and straightening or walking Start outpatient physical therapy next week Ice and elevate the leg 6-10 times a day Wear the compression stockings for 4 weeks on the left leg and for 2 weeks on the right leg Increase her walking a little more each week On Monday, you may shower if the wound has no drainage present. Wound may be uncovered to shower. Let soap and water run over the wound, pat dry and apply a new dressing. Re-use the Silver dressing and big pad for 1 week. Get the silver pad wet with the saline in the syringe, handle it only be the corners. Reapply with silver side towards the skin, cover with the big square pad. The compressions stockings will hold it in place. Follow Up Plan Follow Up Plan At [facility] in 2 weeks with PA for wound check and at [address] Greene with x-rays Call your provider for: Fever, Chills, Shortness of breath, Vomitting, Drainage at incision (that is increasing), Wound redness (that is spreading), Increasing pain (for no reason) Smita Johnson PA-C Mar 23, 2017 09:25
--- NOTE | 2017-03-23 09:29 | PCM.DC.ORT ---
Discharge Summary Date of Service: Mar 23, 2017 Date of Hospital Admission: Mar 21, 2017 at 12:53 Date of Surgery: Mar 21, 2017 Date of Discharge: Mar 23, 2017 Reason for Hospitalization: Left knee arthritis Procedures Performed: Left total knee arthroplasty Hospital Course: The patient was admitted to the hospital on 03/21/2017 and underwent the above procedure. Antibiotic prophylaxis consisting of Ancef and vancomycin. The surgeon was Dr. Greene. A Edmond was placed perioperatively. Patient tolerated the procedure well and was transferred to recovery room in stable condition. Edmond was discontinued on postop day 1. Patient had physical therapy to work on ambulation and transfers. Weightbearing as tolerated with walker. Pain was managed with Vistaril, Toradol, hydrocodone 7.5. Patient tried oxycodone but it was too strong and made her somnolent. DVT prophylaxis: SCDs, BRANDEN hose and aspirin 325 mg twice a day. Patient progressed well with physical therapy and on POD-2 was discharged home. Follow-up: at [facility] 2 weeks postop for wound check and at [address] Greene with x-ray Diagnosis at Time of Discharge Status post left total knee arthroplasty Problems: Discharge Instructions: Discharge Activity-General: Try not to overdue, Be up and about, Balance rest and activity, Elevate & ice extremity Left Lower Extremity: Weight Bearing as tolerated Discharge Assist Device: Front Wheeled Walker Discharge Dressing Care: Keep dressing clean, dry & intact Discharge Hygiene: May shower (see instructions below) Weightbearing as tolerated with walker Every hour of the day that you awake, get up and move - either do exercises, bending and straightening or walking Start outpatient physical therapy next week Ice and elevate the leg 6-10 times a day Wear the compression stockings for 4 weeks on the left leg and for 2 weeks on the right leg Increase her walking a little more each week On Monday, you may shower if the wound has no drainage present. Wound may be uncovered to shower. Let soap and water run over the wound, pat dry and apply a new dressing. Re-use the Silver dressing and big pad for 1 week. Get the silver pad wet with the saline in the syringe, handle it only be the corners. Reapply with silver side towards the skin, cover with the big square pad. The compressions stockings will hold it in place. ([Hydrocodone/Acetaminophen]) 1 TABLET TABLET 1-2 TABLET PO Q4H PRN PRN For Moderate Pain Max 8 per day Atorvastatin (Lipitor) 40 Mg Tablet 40 MG PO DAILY Cholecalciferol (Vitamin D3) (Vitamin D) 1,000 Unit Capsule 1,000 UNIT PO DAILY Docusate Sodium (Colace) 100 Mg Capsule 100 MG PO BID Gabapentin (Gabapentin) 600 Mg Tablet 600 MG PO HS Hydroxyzine Pamoate (HydrOXYzine Pamoate) 25 Mg Capsule 25 MG PO Q6H PRN PRN For Spasm and/or Restlessness Metoprolol Succinate ER (Metoprolol Succinate ER) 100 Mg Tab.er.24h 100 MG PO DAILY Metoprolol Succinate ER (Metoprolol Succinate ER) 50 Mg Tab.er.24h 50 MG PO HS Smita Johnson PA-C Mar 23, 2017 09:29
[2017-03-23] MEDS ORDERED: HYDR-3797 PO (09:31)
[2017-03-23] MEDS ORDERED: Hydrocodone/Acetaminophen PO (09:31)
[2017-03-23 13:00] VITALS: BP 111/73; PULSE 65; RESP 18; O2SAT 95
--- NOTE | 2017-03-23 15:52 | NUR ---
Social Work: Discharge D: EMR reviewed. Pt to discharge today. Pt to d/c home with to transport via POV. Pt has been cleared for home by PT. Pt has all necessary DME. No d/c needs. A: Pt who is independent at baseline and has the capacity for self-care. P: Pt to discharge home with to transport via POV. No SW needs identified, no MD orders received. No d/c needs. Mercedes Giron MSW
--- NOTE | 2017-03-23 16:45 | NUR ---
Pain / Activity Pt experienced drowsiness on 03/22 apparently from oxycodone. Pt reported that she was falling asleep when people were talking to her. Today pt was receiving good pain relief from 1 hydrocodone tablet Q 4 hrs and 25 mg Vistaril Q 6 hrs. Pt was able to work with PT two times today. At midday, pt expressed concern and was anxious about being discharged today and stated she wanted to stay here another night. Phoned Paula VALLECILLO to relay this information. Paula stated that pt has no medical reason to stay and that her PT progress was acceptable for pt to discharge home. Spoke with PT and advised her of pt's concerns. Spoke with pt along with PT after her p.m. therapy session to reassure pt that she would be okay. Pt was tearful, but she agreed she would be okay; she has her to help her at home. Instructed pt on usage of pain medication to allow her to move about at home. Pt expressed verbal understanding. Pt is accepting of the decision to discharge today.
--- NOTE | 2017-03-23 17:45 | NUR ---
Discharge Pt discharged to home with spouse via private vehicle at 1745 hrs. PIV removed intact. VSS. Pain controlled with hydrocodone and vistaril. Dressing was clean, dry, and intact. BRANDEN hose on both legs. Instructed pt on wound care, activity, and follow up with provider. Also educated pt about signs and symptoms of infection. Pt expressed verbal understanding of the above and had no further questions.
== END 2017-03-23 17:45 | disposition home or self-care (01) | DRG 470 ==
LOC: SAS 08:06 → OSC 12:53
PROVIDERS: ADMIT Orthopaedic Surgery; ATTEND Orthopaedic Surgery
PROC: 0SRD0J9 Replacement of Left Knee Joint with Synthetic Substitute, Cemented, Open Approach (ICD-10-PCS; principal; 2017-03-21 10:15)
DX: M17.12 Unilateral primary osteoarthritis, left knee (principal); I10 Essential (primary) hypertension; Z96.642 Presence of left artificial hip joint

== ENCOUNTER 2017-03-28 10:37 | Inpatient (IN) | payer OTHER ==
[~2017-03-28] VITALS: Ht 144.8 cm; Wt 68.7 kg
[~2017-03-28 10:37] MED LIST changes: -ACET325T51 PO; -Bupivacaine Liposome 1.3% 20 mL Inj INFILTRATE ONE; -CeFAZolin Inj 2 GM in IV Premix 1 EACH IV ONE; +HYDR-3797 PO; +Hydrocodone/Acetaminophen PO; -Vancomycin Inj 1,000 MG in IV Premix 1 EACH IV ONE
[2017-03-28 10:42] VITALS: BP 151/71; PULSE 70; RESP 16; O2SAT 97
--- NOTE | 2017-03-28 10:56 | ED.REPORT ---
HPI-Extremity Problem Lower Date of Service Mar 28, 2017 ED Provider: Guillermo Arthur DO The pt is a 61 y/o female w/ a hx of L knee and L hip surgery, HTN, osteoarthritis and osteoarthrosis and hyperlipidemia presenting to the ED complaining of L knee pain. The pt had L knee surgery a week ago and her ROM has decreased since the surgery. she states the knee is warm, red, and tender to the touch. The pt has seen no pus. Denies fever or chills. The surgery was performed by Dr. Car. Nursing Notes Stated Complaint: ULTRASOUND REQUEST,LEG PAIN Chief Complaint: L knee pain Nursing Notes Reviewed: Yes Allergies: Coded Allergies: No Known Allergies (Verified Allergy, Unknown, 03/28/17) Scheduled Atorvastatin (Lipitor) 40 Mg Tablet 40 MG PO DAILY Cholecalciferol (Vitamin D3) (Vitamin D) 1,000 Unit Capsule 1,000 UNIT PO DAILY Docusate Sodium (Colace) 100 Mg Capsule 100 MG PO BID Gabapentin (Gabapentin) 600 Mg Tablet 600 MG PO HS Metoprolol Succinate ER (Metoprolol Succinate ER) 100 Mg Tab.er.24h 100 MG PO DAILY Metoprolol Succinate ER (Metoprolol Succinate ER) 50 Mg Tab.er.24h 50 MG PO HS Scheduled PRN ([Hydrocodone/Acetaminophen]) 1 TABLET TABLET 1-2 TABLET PO Q4H PRN PRN For Moderate Pain Max 8 per day Hydroxyzine Pamoate (HydrOXYzine Pamoate) 25 Mg Capsule 25 MG PO Q6H PRN PRN For Spasm and/or Restlessness General Time Seen by MD: 10:51 Chief Complaint Other (L knee pain ) Hx Obtained From: Patient Arrived By: Walk-in Onset Occurred: 1 week ago Symptom Duration: Since onset Recent Healthcare: Recent doctor visit, Recent hospitalization Similar Sx Previous: Yes Past Medical History Past Medical History Arthritis Osetoarthrosis Reports: Hyperlipidemia, Hypertension Past Surgical History L knee surgery L hip surgery Social History Alcohol Use: "Social" Other Social History: Good social support, Ambulatory Status Independent Review of Systems Decreased ROM of L knee; L knee swelling, erythema, warmth, and tenderness to touch; Constitutional: Denies: Chills, Fever Musculoskeletal: Reports: Extremity pain (L knee ) Complete sys rev & neg: except as marked. Physical Exam Initial Vital Signs Vital Signs (First) Date Time Temp Pulse Resp B/P Pulse Ox O2 Delivery O2 Flow Rate FiO2 03/28/17 10:42 37.0 70 16 151/71 97 Room Air Initial VS: Reviewed General/Constitutional: Well-developed, Well-nourished Head / Eyes: Atraumatic, Normocephalic, PERRL ENT: Mucous membranes moist, Conjunctiva normal, No scleral icterus Neck: Supple, Non-tender, Full range of motion Respiratory: Breath sounds normal, Clear to auscultation, No respiratory distress Upper Extremities: Vascular intact, Neuro intact, No swelling, No tenderness Neurologic: Alert, Oriented, Nonfocal Psychiatric: Mood/affect normal, Behavior normal, Normal thought content Lower Extremity / Pelvis / MS: No deformity Unilateral swelling, erythema, warmth and tenderness to L knee w/ decreased ROM Suture line is clean dry and intact Ankle / Foot: Full range of motion, Neurologic intact Cardiovascular: Heart rate NL, Regular rhythm, Heart sounds NL Interpretation & Diagnostics PROCEDURE: US VEINOUS LEG DUPLEX UNILATERAL, LEFT IMPRESSION: No evidence of deep vein thrombosis involving the left lower extremity. Dictated by: Barbara Ba MD, PhD on 03/28/2017 at 12:01 Approved by: Barbara Ba MD, PhD on 03/28/2017 at 12:01 Lab Results Interpretation Result Diagram: 03/28/17 1115 03/28/17 1115 Test 03/28/17 11:15 White Blood Count 5.9th/mm3 (3.8-10.1) Red Blood Count 3.19mil/mm3 (3.90-5.20) Hemoglobin 10.6g/dL (12.0-15.6) Hematocrit 32.6% (35.0-46.0) Mean Corpuscular Volume 102.2fL (81-100) Mean Corpuscular Hemoglobin 33.2pg (27.0-35.0) Mean Corpuscular Hemoglobin Concent 32.5% (32.0-37.0) Red Cell Distribution Width 12.8% (12.3-15.4) Platelet Count 464bil/L (150-400) Neutrophils (%) (Auto) 65.3% (40-74) Lymphocytes (%) (Auto) 20.8% (14-46) Monocytes (%) (Auto) 10.8% (4-12) Eosinophils (%) (Auto) 2.5% (0-5) Basophils (%) (Auto) 0.3% (0-3) Erythrocyte Sedimentation Rate 64mm/hr (0-40) Sodium Level 138mEq/L (134-144) Potassium Level 3.9mEq/L (3.5-5.2) Chloride Level 97mEq/L (97-108) Carbon Dioxide Level 23mmol/L (18-29) Blood Urea Nitrogen 8mg/dL (8-27) Creatinine 0.69mg/dL (0.57-1.00) Estimat Glomerular Filtration Rate 123mL/min (>59) Glucose Level 103mg/dL (60-99) Calcium Level 9.5mg/dL (8.5-10.1) C-Reactive Protein 20.8mg/dL (0.0-0.5) Hold Hackett Top Tube Received (Received) X-Ray Interpretation Xray Interpretation: IMPRESSION: No significant postoperative abnormality can be seen. Dictated by: Eric Katz M.D. on 03/28/2017 at 12:07 Approved by: Eric Katz M.D. on 03/28/2017 at 12:08 X-Ray Ordered: Knee left Interpretation / Wet Read by: Interpret - Radiologist Re-Eval/Medical Decision Med Decision/Clinical Course concerning for septic arthritis, discussed with orthopedics who will consult. IV antibiotics initiated. We'll plan to admit. Source of Hx: Old records Re-Evaluation/Progress : Time of Eval: 12:15 Re-Evaluation/Progress Note: Pt rechecked. Informed pt of need for admission. Pt understands and agrees with plan for admission. All questions addressed. Consultation #1: Referral / Consult Name: Moreno Waller MD Consulted With: Orthopedic Call Returned at: 12:13 Note: Spoke w/ Dr. Waller who recommends admitting the pt. Consultation #2: Referral / Consult Name: Jeanine Weeks DO Consulted With: Hospitalist Call Returned at: 13:24 Cleat Layer: Will see patient, Agrees with eval, Agrees with plan, Accepts admit Counseled Regarding: Diagnosis, Lab results, Need for admission Discharge & Departure Impression: Primary Impression: Septic arthritis Septic arthritis location: unspecified location Septic arthritis organism: due to unspecified organism Qualified Code: M00.9 - Pyogenic arthritis, unspecified Disposition: ADMITTED TO HOSPITAL Discharge Condition All VS Reviewed: Yes Condition: Stable Referrals: Jenny Gustafson MD (PCP) Scribe Attestation Portions of this note were transcribed by Jesu Best. I, Dr. Arthur personally performed the history, physical exam and medical decision-making; I reviewed and confirmed the accuracy of the information in the transcribed note. copies to: Jenny Gustafson MD, Timothy S DO Mar 28, 2017 10:56 Jesu Best Mar 28, 2017 11:13
[2017-03-28 11:24] LABS: BASOPHILS % (AUTO) 0.3 % (0-3); EOSINOPHILS % (AUTO) 2.5 % (0-5); MONOCYTES % (AUTO) 10.8 % (4-12); Mean Corpuscular Hemoglobin 33.2 pg (27.0-35.0); Mean Corpuscular Volume 102.2 fL (81-100); NEUTROPHILS % (AUTO) 65.3 % (40-74); Platelet Count 464 bil/L (150-400)
[2017-03-28 11:59] LABS: ERYTHROCYTE SEDIMENTATION RATE 64 mm/hr (0-40)
[2017-03-28] MEDS ORDERED: cefTRIAXone Inj 2,000 MG in Dextrose 5% Minibag Plus 50 ML IV ONE (12:10)
--- NOTE | 2017-03-28 12:10 | DRSVH ---
PROCEDURE: X-RAY LEFT KNEE, THREE VIEWS ([id number]) INDICATIONS: post op pain TECHNIQUE: 3 views of the knee were acquired. COMPARISON: [facility], CR, XR KNEE 1 OR 2VW LT, 03/21/2017, 12:29. FINDINGS: Bones: Left knee arthroplasty hardware is seen. No findings of hardware failure or hardware looseni ng are seen. No fractures or dislocations. No suspicious bony lesions. Soft tissues: No joint effusion. No suspicious soft tissue calcifications. IMPRESSION: No significant postoperative abnormality can be seen. Dictated by: Eric Katz M.D. on 03/28/2017 at 12:07 Approved by: Eric Katz M.D. on 03/28/2017 at 12:08
[2017-03-28] MEDS ORDERED: Vancomycin Inj 1,250 MG in 0.9% Sodium Chloride 250 ML IV ONE (12:25)
--- NOTE | 2017-03-28 12:27 | PCM.CONPHA ---
Subjective Date of Service: Mar 28, 2017 Reason for Pharmacy Consult: Vancomycin Dosing Objective Vital Signs Date Time Temp Pulse Resp B/P Pulse Ox O2 Delivery O2 Flow Rate FiO2 03/28/17 10:42 37.0 70 16 151/71 97 Room Air Weight (Kilograms): 69.09 Height (Feet): 4 Height (Inches): 9 Test 03/28/17 11:15 White Blood Count 5.9th/mm3 (3.8-10.1) Red Blood Count 3.19mil/mm3 (3.90-5.20) Hemoglobin 10.6g/dL (12.0-15.6) Hematocrit 32.6% (35.0-46.0) Mean Corpuscular Volume 102.2fL (81-100) Mean Corpuscular Hemoglobin 33.2pg (27.0-35.0) Mean Corpuscular Hemoglobin Concent 32.5% (32.0-37.0) Red Cell Distribution Width 12.8% (12.3-15.4) Platelet Count 464bil/L (150-400) Neutrophils (%) (Auto) 65.3% (40-74) Lymphocytes (%) (Auto) 20.8% (14-46) Monocytes (%) (Auto) 10.8% (4-12) Eosinophils (%) (Auto) 2.5% (0-5) Basophils (%) (Auto) 0.3% (0-3) Erythrocyte Sedimentation Rate 64mm/hr (0-40) Sodium Level 138mEq/L (134-144) Potassium Level 3.9mEq/L (3.5-5.2) Chloride Level 97mEq/L (97-108) Carbon Dioxide Level 23mmol/L (18-29) Blood Urea Nitrogen 8mg/dL (8-27) Creatinine 0.69mg/dL (0.57-1.00) Estimat Glomerular Filtration Rate 123mL/min (>59) Glucose Level 103mg/dL (60-99) Calcium Level 9.5mg/dL (8.5-10.1) C-Reactive Protein 20.8mg/dL (0.0-0.5) Hold Hackett Top Tube Received (Received) Assessment/Plan Assessment/Plan Pt is a 61yo female seeking treatment for knee pain, recent surgery. Labs as above. Will give a one time IV vancomycin dose of 1250mg. Pt also to receive IV ceftriaxone. Further vancomycin orders if reordered upon admission. Leeann Saavedra PharmD Mar 28, 2017 12:27
--- NOTE | 2017-03-28 13:03 | DRSVH ---
PROCEDURE: US VEINOUS LEG DUPLEX UNILATERAL, LEFT INDICATIONS: post op swelling TECHNIQUE: Real-time imaging, as well as color and pulse Doppler interrogation, were performed of the lower extr emity deep veins from the inguinal ligament to the popliteal fossa. COMPARISON: None. FINDINGS: The deep veins are normally compressible, and free of intraluminal thrombus. Color and pu lse Doppler demonstrate normal phasic intraluminal flow. There is normal augmentation response to di stal compression maneuver. IMPRESSION: No evidence of deep vein thrombosis involving the left lower extremity. Dictated by: Barbara Ba MD, PhD on 03/28/2017 at 12:01 Approved by: Barbara Ba MD, PhD on 03/28/2017 at 12:01
[2017-03-28] MEDS ORDERED: Alum-Mag Hydrox-Simeth 30 mL Suspension PO PRN (13:25)
[2017-03-28] MEDS ORDERED: Ondansetron 2 mg/mL 2 mL Inj IVPUSH PRN (13:25)
[2017-03-28] MEDS ORDERED: Polyethylene Glycol (PEG) 17 Gm Powder PO PRN (13:25)
[2017-03-28] MEDS ORDERED: Vancomycin Dose per Pharmacist XX ONE (13:25)
[2017-03-28] MEDS ORDERED: HYDROcodone-APAP 5-325 mg Tablet PO PRN (13:25)
[2017-03-28 13:47] VITALS: BP 143/84; PULSE 79; RESP 20; O2SAT 99
[2017-03-28] MEDS: 0.9% Sodium Chloride 1,000 ML IV SCH (13:49)
[2017-03-28] MEDS ORDERED: HYDR-3825 PO (14:02)
[2017-03-28] MEDS ORDERED: POLY17PO6 PO (14:02)
[2017-03-28] MEDS ORDERED: DOCU-41 PO (14:02)
[2017-03-28] MEDS ORDERED: METO-394 PO (14:02)
[2017-03-28 14:09] VITALS: BP 138/76; PULSE 80; RESP 18; O2SAT 99
--- NOTE | 2017-03-28 14:23 | PCM.HPMED ---
Subjective Date of Service Mar 28, 2017 Primary Provider: Admitting Physician: Primary Care Physician: Jenny Gustafson MD Attending Physician: Admit Status: From the Emergency Department, Full Admit, Admit to Goodell Team Chief Complaint: Left knee pain. . History of Present Illness: Jazmín Lee is a 61-year-old female with a past medical history significant for hypertension, hyperlipidemia, and osteoarthritis who presents to [facility] emergency Department from her physical therapy office due to left knee pain. She had a successful left knee replacement on [address] Greene of orthopedic surgery. She was discharged on 2016. She reports that she had some soreness that she thought was routine for a total knee placement. However, on 03/25/2017 she began to experience increasing pain. She has had accompanying chills and headache. She denies dizziness, lightheadedness, sore throat, cough, chest pain, shortness of breath, fever, nausea, vomiting, dysuria, diarrhea or constipation. She has no history of blood clots. She has no other complaints at this time. Vital signs in the ER: Temperature 37.0. Pulse 70. Respiratory rate 16. Blood pressure 151/71. Pulse ox 97% on room air. She received ceftriaxone IV 2000 mg 1 and vancomycin with dosing per pharmacist. PCP is Dr. Jenny Gustafson. . Review of Systems: A comprehensive review of systems was conducted with the patient and found to be negative except as above in the History of Present Illness. . Allergies Coded Allergies: No Known Allergies (Verified Allergy, Unknown, 03/28/17) Home Medications Atorvastatin 40 mg daily. Colace 100 mg twice a day as needed for constipation. Gabapentin 600 mg daily at bedtime. Hydrocodone 7.5-325 mg 1-2 tablets every 4 hours as needed for pain. Hydroxyzine 25 mg every 6 hours as needed for restlessness. Metoprolol succinate 100 mg every morning and 50 mg every afternoon. MiraLAX 17 g daily as needed for constipation. Vitamin D3 1000 international units daily. PMH 1. Hypertension. 2. Hyperlipidemia. 3. Eczema. 4. Osteoarthritis. 5. History of pneumonia. . Surgical History 1. Left MONICA. 2. Left TKA. 3. Bilateral cataract extraction. . Family History Mother and father both from lung cancer. One sister who from Parkinson's disease. One brother who has hypertension but is otherwise healthy. . Social History Hx Alcohol Use: Yes (1-2 glasses of wine/week) Hx Substance Use: No Hx Tobacco Use: No Smoking Status: Never Smoker Living Arrangement: with Family Additional Information She is 38 years. She has 1 daughter and 2 sons who are all healthy. 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 She now is a [id number] grandmother to her grandson. . Exam Vital Signs Vital Sign - Last Date Time Temp Pulse Resp B/P Pulse Ox O2 Delivery O2 Flow Rate FiO2 03/28/17 10:42 37.0 70 16 151/71 97 Room Air Exam General: Middle-aged female lying in bed and in no acute distress, well- developed, well-nourished, appropriately interactive. HEENT: Normocephalic, atraumatic. External ears without defect. Pupils equal, round, and reactive to light. Anicteric sclerae, moist conjunctivae, and no lid lag. Oropharynx free of erythema and cobble stoning with moist mucosa. Neck: Supple with full range of motion. No lymphadenopathy or thyromegaly. Cardiovascular: Regular rate and rhythm without murmurs, rubs, or gallops appreciated Pulmonary: Clear to auscultation bilaterally without crackles, wheezes, or rhonchi. Normal respiratory effort with no use of accessory muscles. Abdomen: Soft, nontender, nondistended, bowel sounds present. No hepatosplenomegaly or masses appreciated. Extremities: Right lower extremity without cyanosis, clubbing or erythema. Left lower extremity with erythema and edema circumferentially around knee joint. Vertical surgical incision intact with sutures in place without erythema or exudate. Decreased range of motion left lower extremity and significant tenderness to palpation. Mild tenderness to palpation in left calf. Neurological: Cranial nerves grossly intact. Normal muscle strength, tone, and bulk. Reflexes, coordination, and sensory function within normal limits. No known gait impairment. Psychiatric: Normal mood and affect. Alert and oriented to person, place, and time. . Lab and Diagnostics Labs Item Value Date Time Procalcitonin 1.93 ng/mL H 03/28/17 1115 Item Value Date Time Erythrocyte Sedimentation Rate 64 mm/hr H 03/28/17 1115 Item Value Date Time Calcium Level 9.5 mg/dL 03/28/17 1115 C-Reactive Protein 20.8 mg/dL H 03/28/17 1115 Result Diagram: 03/28/17 1115 03/28/17 1115 Microbiology Blood cultures 2 pending. . X-Rays, CTs and MRIs US VEINOUS LEG DUPLEX UNILATERAL, LEFT IMPRESSION: No evidence of deep vein thrombosis involving the left lower extremity. Dictated by: Barbara Ba MD, PhD on 03/28/2017 at 12:01 X-RAY LEFT KNEE, THREE VIEWS IMPRESSION: No significant postoperative abnormality can be seen. Dictated by: Eric Katz M.D. on 03/28/2017 at 12:07 . Assessment & Plan Jazmín Lee is a 61-year-old female with a past medical history significant for hypertension, hyperlipidemia, and osteoarthritis who presents to [facility] emergency Department from her physical therapy office due to left knee pain. 1. Acute septic left knee, present on admission. Active. - Patient underwent successful total knee replacement on 03/21/2017. Now presents with significant tenderness to palpation, erythema and edema with very little range of motion. Afebrile without leukocytosis. - ESR 64 and CRP 20.8 in the context of recent surgery. - Pro calcitonin elevated at 1.93. - Doppler ultrasound of left knee did not demonstrate any deep venous thrombosis , as above. - Started on Zosyn IV 3.375 g and vancomycin with dosing per pharmacist. Continue both Zosyn 3.375 g every 8 hours and vancomycin with dosing per pharmacist. - Continue hydrocodone 7.5-325 mg every 6 hours as needed for moderate pain and gabapentin 600 mg daily at bedtime. - NPO pending further recommendations from orthopedic surgery. She has not ate since 1800 last night. - Consider further imaging such as MRI pending orthopedic surgery's recommendation. - Consulted orthopedic surgery, Dr. Greene, we will plan to see the patient today. Chronic problems: 2. Hypertension, present on admission. Stable. - Continue metoprolol succinate 100 mg every morning and 50 mg every afternoon. 3. Hyperlipidemia, present on admission. Stable. - Continue atorvastatin 40 mg daily at bedtime. The patient is DNR/DNI but will remain full code for probable future surgery. PRN antiemetics: Zofran and Maalox. PRN bowel regimen: Senna and MiraLAX. PRN analgesics: Tylenol. Patient is admitted under inpatient status with expected length of stay greater than 2 midnights due to severity of presenting symptoms, risk of adverse event, and complexity of treatment plan. . Resuscitation Status: DNR/DNI:Do Not Resuscitate/Intubate copies to: Jenny Gustafson MD, Georgia M DO Mar 28, 2017 13:19
--- NOTE | 2017-03-28 15:03 | PCM.CONPHA ---
Assessment/Plan Assessment/Plan Vancomycin Management by Pharmacy: -Indication: acute septic knee, s/p L tka on 03/21 -pt is afebrile without leukocytosis -Concurrent Antibiotics: pt had received one dose of Ceftriaxone 2gm in Ed, now is on Zosyn 3.375gm iv q8 -Nephrotoxic Risk: concurrent Zosyn -wbc 5.9, procalcitonin 1.93, Lactic acid 1.2, pulse 70 -serum creatinine 0.69, est crcl ~ 75ml/min -goal trough level: -Plan: pt received Vancomycin loading dose of 1.25gm ~ 1345 today. will continue with a maintenance regimen of 1gm iv [id number] (08-23) and draw trough level at 0130 on 03/30 (prior to 4th dose). serum creatinine has been ordered to monitor renal function Kaylee Iraheta [facility] Mar 28, 2017 15:03
[2017-03-28] MEDS: MeTOProlol XL 50 mg ER24 Tablet PO SCH (16:24)
[2017-03-28] MEDS ORDERED: Piperacillin-Tazo 3.375 Gm Inj 3.375 GM in Dextrose 5% Minibag Plus 50 ML IV ONE (16:30)
[2017-03-28] MEDS: Sodium Chloride LOK Flush 10 mL Syringe IVFLUSH SCH (16:30)
--- NOTE | 2017-03-28 17:39 | NUR ---
Admission Pt admitted to OSC unit, 1008, from ED at 1340. Pt oriented to room and call light. A&Ox3, KAMARA, VSS, IV patent - Admission RN Sara started IVF and next abx upon arrival, No tele, Belongings brought over from ED, MRSA swab sent, LLE elevated and iced, Dressing of steristrips CDI to Left knee. Later Dr. Greene present to aspirate knee. Pt able to eat dinner. Calm and cooperative with care. Care continues.
--- NOTE | 2017-03-28 17:47 | CONS ---
[address] [address] CONSULTATION REPORT PATIENT: BYRON HERRERA : 1955 MR#: [id number] ADMIT: 03/28/2017 JOB ID: [id number] DATE OF SERVICE: 03/28/2017 CHIEF COMPLAINT: Left knee pain. HISTORY OF PRESENT ILLNESS: The patient is a 61-year-old female, who underwent a left total knee arthroplasty with myself last week. She was initially doing well, but yesterday began having increasing pain, swelling, warmth in the knee. She denied any fevers, but did say that she felt cold and was unable to participate in physical therapy today as a result of the pain, redness and swelling, and presented to the emergency department and was admitted to the hospital. She is well-known to me. PAST MEDICAL HISTORY: Significant for hypertension, eczema, and history of pneumonia. PAST SURGICAL HISTORY: Left total hip arthroplasty and left total knee arthroplasty. PHYSICAL EXAMINATION: Blood pressure 138/76, pulse rate 80, respirations 18, temperature 36.7. She is alert and cooperative, in no acute distress. Left knee has warmth and redness surrounding the knee as well as swelling in the knee. Her surgical incision is healing well. There is no dehiscence of the wound. She has painful limited range of motion of the knee. She is able to move her toes and sensation to foot is intact. She does have some tenderness in the calf and lower leg. She had a Doppler which was negative for DVT. IMAGING: X-rays are essentially unremarkable. LABORATORY DATA: Normal white blood cell count of 5.9. She has elevated sedimentation rate of 64. C-reactive protein of 20.8. ASSESSMENT: Left knee hematoma versus septic arthritis. PLAN: We discussed options and I recommended a knee aspiration in order to send fluid for further evaluation to determine whether not she has an infection present and to help determine our course of action whether it be return trip to the OR for irrigation and polyethylene exchange or conservative management. The patient was amenable to this treatment plan. PROCEDURE: The left superior lateral knee was anesthetized with 1% lidocaine plain and then an 18-gauge spinal needle was introduced into the knee and I was able to aspirate about 6 cc of dark blood and placed this in a purple top/red top, and culture swab. She tolerated the procedure well. ASSESSMENT: Left knee hematoma. PLAN: Will plan to check the knee fluid aspirate, and I believe that this knee is not infected and that we can likely discontinue antibiotics; however we will wait for the fluid analysis. If there is more convincing evidence of infection then would plan to do a synovectomy and polyethylene exchange, but if it is indeed a hematoma/postop swelling, will manage this with rest, ice, compression, elevation.
[2017-03-28] MEDS: HYDROcodone-APAP 7.5-325 mg Tablet PO PRN (18:34)
[2017-03-28 19:23] LABS: BFWBC 6250 /mm3; MONOCYTES,BODY FLUID 3 %
[2017-03-28 19:24] LABS: OTHER CELLS,BODY FLUID 0
[2017-03-28 19:45] VITALS: BP 109/71; PULSE 67; RESP 18; O2SAT 95
[2017-03-28] MEDS: Piper-Tazo 3.375 Gm/50 mL D5W Minibag Plus - Q8H over 4 hrs IV SCH ×2 (20:20)
[2017-03-29] VITALS (16 sets, daily range): BP systolic 120–173; BP diastolic 68–91; PULSE 61–88; RESP 12–22; O2SAT 91–98
[2017-03-29] MEDS: hydrOXYzine Pamoate 25 mg Capsule PO PRN ×3 (00:01→14:12)
[2017-03-29] MEDS: HYDROcodone-APAP 7.5-325 mg Tablet PO PRN ×3 (00:02→14:12)
[2017-03-29] MEDS: Sodium Chloride LOK Flush 10 mL Syringe IVFLUSH SCH ×3 (00:30→16:30)
[2017-03-29] MEDS: Vancomycin 1 Gm/200 mL NS Premix IV SCH ×2 (02:25→14:00)
[2017-03-29] MEDS: 0.9% Sodium Chloride 1,000 ML IV SCH ×3 (02:31→21:56)
--- NOTE | 2017-03-29 03:00 | NUR ---
PAIN/ACTIVITY: Pt. resting in bed most of the night, has been up to the BSC with one person assist for safety. Left leg with pitting edema and painful. Pt. requested pain medication, rated pain at 8/10. Given 2 Royal and 25 mg of po Vistaril, helpful resting comfortably. Pt. NPO after midnight for possible surgery Monday. A & O, vss. On going care.
[2017-03-29] MEDS: Piper-Tazo 3.375 Gm/50 mL D5W Minibag Plus - Q8H over 4 hrs IV SCH ×6 (04:29→21:53)
--- NOTE | 2017-03-29 07:48 | PCM.PNMED ---
Subjective Date of Service Mar 29, 2017 Subjective Patient seen and examined today. Anxious about the surgery, complains of headache. Vitals stable. Exam Vital Signs Vital Sign - Last Date Time Temp Pulse Resp B/P Pulse Ox O2 Delivery O2 Flow Rate FiO2 03/29/17 04:32 36.9 62 18 126/75 95 Room Air Intake and Output 03/28/17 03/28/17 03/29/17 Cumulative From/Thru 15:00 23:00 07:00 03/28/17 10:42 - 03/29/17 05:54 Intake Total 1338 ml 1664 ml 3002 ml Output Total 1150 ml 1150 ml Balance 1338 ml 514 ml 1852 ml Intake Oral 800 ml 500 ml 1300 ml IV Total 538 ml 1164 ml 1702 ml Output Urine Total 1150 ml 1150 ml # Voids 1 1 # Bowel Movements 1 1 Exam General: Middle-aged female lying in bed and in mild distress Cardiovascular: Regular rate and rhythm without murmurs, rubs, or gallops appreciated. circulation intact to the left leg Pulmonary: Clear to auscultation bilaterally without crackles, wheezes, or rhonchi. Normal respiratory effort with no use of accessory muscles. Abdomen: Soft, nontender, nondistended, bowel sounds present. No hepatosplenomegaly or masses appreciated. Extremities: Right lower extremity without cyanosis, clubbing or erythema. Left lower extremity with erythema and edema circumferentially around knee joint. Vertical surgical incision intact with sutures in place without erythema or exudate. Decreased range of motion left lower extremity and significant tenderness to palpation. Mild tenderness to palpation in left calf. Neurological: Cranial nerves grossly intact. Normal muscle strength, tone, and bulk. Reflexes, coordination, and sensory function within normal limits. No known gait impairment.e. Lab and Diagnostics Result Diagram: 03/28/17 1115 03/29/17 0511 Microbiology Blood cultures 2 pending. . X-Rays, CTs and MRIs US VEINOUS LEG DUPLEX UNILATERAL, LEFT IMPRESSION: No evidence of deep vein thrombosis involving the left lower extremity. Dictated by: Barbara Ba MD, PhD on 03/28/2017 at 12:01 X-RAY LEFT KNEE, THREE VIEWS IMPRESSION: No significant postoperative abnormality can be seen. Dictated by: Eric Katz M.D. on 03/28/2017 at 12:07 . Assessment & Plan Jazmín Lee is a 61-year-old female with a past medical history significant for hypertension, hyperlipidemia, and osteoarthritis who presents to [facility] emergency Department from her physical therapy office due to left knee pain. 1. Acute septic left knee, present on admission. Active. - Patient underwent successful total knee replacement on 03/21/2017. Now presents with significant tenderness to palpation, erythema and edema with very little range of motion. Afebrile without leukocytosis. - ESR 64 and CRP 20.8 in the context of recent surgery. - Pro calcitonin elevated at 1.93. Will trend - Doppler ultrasound of left knee did not demonstrate any deep venous thrombosis , as above. - Started on Zosyn IV 3.375 g and vancomycin with dosing per pharmacist. Continue both Zosyn 3.375 g every 8 hours and vancomycin with dosing per pharmacist. - Continue hydrocodone 7.5-325 mg every 6 hours as needed for moderate pain and gabapentin 600 mg daily at bedtime. - Arthrocentesis revealed many WBCs and RBCs, this could be just blood, however considering the turbid nature of fluid, infection cannot be ruled out. Synovial fluid culture pending. - Ortho on board, surgery today at around 16:00 Chronic problems: 2. Hypertension, present on admission. Stable. - Continue metoprolol succinate 100 mg every morning and 50 mg every afternoon. 3. Hyperlipidemia, present on admission. Stable. - Continue atorvastatin 40 mg daily at bedtime. The patient is DNR/DNI but will remain full code for probable future surgery. PRN antiemetics: Zofran and Maalox. PRN bowel regimen: Senna and MiraLAX. PRN analgesics: Tylenol. Patient is admitted under inpatient status with expected length of stay greater than 2 midnights due to severity of presenting symptoms, risk of adverse event, and complexity of treatment plan. . Pain Evaluation: Adequate Pain Control VTE Mechanical Devices: Intermittant Pneumatic CD, Anti-Embolic stockings Resuscitation Status: DNR/DNI:Do Not Resuscitate/Intubate Time spent 35 mins Carl Martinez MD Mar 29, 2017 07:48
[2017-03-29] MEDS ORDERED: Vancomycin Dose per Pharmacist XX SCH (08:30)
[2017-03-29] MEDS: MeTOProlol XL 50 mg ER24 Tablet PO SCH ×2 (08:32→21:53)
[2017-03-29] MEDS ORDERED: Dexamethasone 4 mg/mL Inj ONE (09:01)
[2017-03-29] MEDS ORDERED: Ondansetron 2 mg/mL 2 mL Inj ONE (09:01)
[2017-03-29] MEDS ORDERED: Propofol 10,000 mCg/mL 20 mL Inj ONE (09:01)
[2017-03-29] MEDS ORDERED: fentaNYL-PF 50 mCg/mL 2 mL Inj ONE (09:01)
--- NOTE | 2017-03-29 09:14 | NUR ---
Social Work: Initial Assessment Data: See initial assessment. Patient is a 61 year old female who was admitted on 03/28/17 for septic, arthritis per H&P. Patient's insurance is [facility] and her PCP is Jenny Gustafson MD. EMR reviewed. SW met with patient to discuss discharge planning. SW role explained. Patient confirms that she lives with her spouse and daughter in a two story home located in [place]. Patient states that there are two steps at the entrance of the home and seven steps to the upstairs bedroom. Patient states that she uses a cane and a FWW at baseline for ambulation. Patient states that she also has a raised toilet seat that she uses. Patient confirms that she is I at baseline and is able to perform all of her ADLs and care needs. Patient considers her spouse and her daughter to be her main sources of support. Patient confirms that she has received home health services in the past with [facility]. Patient denies having a hx of SNF placement. Patient denies having DPOA but confirms that AD have been completed on her behalf. Patient denies having alf care insurance or VA benefits. Upon discharge, family will assist with transportation needs. SW provided patient with a discharge planning checklist booklet and encouraged to call with any questions or concerns. Phone number provided. SW will continue to follow. Assessment: Patient admitted on 03/28/17 from home with family in [place]. Plan: Patient will likely discharge home when medically stable. Transportation will be provided by family. Patient already has needed DME. SW will continue to follow. TONY Tabor Addendum: 03/29/17 at 0923 by MOHIT RAMIREZ Amended: Links added.
--- NOTE | 2017-03-29 11:24 | CONS ---
[address] [address] CONSULTATION REPORT PATIENT: BYRON HERRERA : 1955 MR#: [id number] ADMIT: 03/28/2017 JOB ID: [id number] DATE OF SERVICE: 03/29/2017 INFECTIOUS DISEASE CONSULTATION: I thank Dr. Greene of Orthopedic Surgery for this timely consult. REASON FOR CONSULT: Possible infected left prosthetic knee. HISTORY OF PRESENT ILLNESS: The patient is a 61-year-old quite healthy woman with only hypertension and hyperlipidemia as her medical problems. Earlier this year she underwent a left total hip which was completely uncomplicated and she recovered well. On March 21 she went for a left total knee, also because of advanced osteoarthritis, and did well for a few days but then developed on or about March 25 rapid swelling, erythema, and stiffness of her new left prosthetic knee. This was not associated with much in the way of constitutional symptoms though she did have some subjective mild chills, but no fevers, sweats, or sore throat. She did note she had a bit of a headache in association with this increasing swelling and pain. Because of these symptoms she was reevaluated and was subsequently admitted to the hospital yesterday through the emergency department by Dr. Arthur. At the time of her readmission there was an aspirate done of the knee looking for infection but she had already been initiated on antibiotics. Yesterday's antibiotics included ceftriaxone and vancomycin and was subsequent switched to vancomycin and Zosyn. Today we discussed the case at the bedside with Dr. Greene. He is planning to take the patient back for a more extensive washout procedure to get more samples and to further inspect the knee itself. He is uncertain as to whether or not there is infection and ID consultation is requested regarding management at this time. PAST MEDICAL HISTORY: 1. Hypertension. 2. Hyperlipidemia. 3. Osteoarthritis, status post left hip and now left knee replacements. 4. History of pneumonia in the past. SOCIAL HISTORY: The patient is a retired nonsmoker and social drinker who lives in [place] and takes care of her grandson. She has not had extensive overseas travel or unusual exposures to her knee. FAMILY HISTORY: Negative for TB in first- or second-degree relatives. REVIEW OF SYSTEMS: The patient has had some mild headaches in association with the knee. No visual complaints. No sore throat. No cough, shortness of breath. No nausea, vomiting, diarrhea, or dysuria. No problems with her left prosthetic hip. Remainder of the review of systems is negative. PHYSICAL EXAMINATION: Reveals a comfortable afebrile woman temp 36.6, pulse 64, respiratory rate 18, blood pressure 120/74. She is saturating well on room air and she is in no acute distress. The patient is alert and oriented x3. Head without trauma. Eyes without conjunctivitis. Oral cavity: No thrush, hairy leukoplakia, pharyngitis. Neck supple. Lungs clear. Cardiac tones regular rate and rhythm without murmur. Abdomen soft and nontender without organomegaly. She does not have a Edmond catheter. She does not have suprapubic distention. The patient has a somewhat swollen left knee but it is only mildly warm to touch, and only minimally erythematous. It is swollen and somewhat stiffer than one would expect for a one week postop knee because perhaps of the distention within the knee. The leg peripheral to the knee is somewhat tender around the posterior calf but there is no evidence of cellulitis or skin breakdown. The overlying sutures over the prosthetic knee are intact and there is no leakage or purulence observed. The opposite extremity is benign appearing. There is no evidence of synovitis anywhere except the left knee and no skin rash. Note the patient is darkly pigmented because of artificial sun tanning. She is neurologically intact. LABORATORIES: Include white count 5900, platelet count 464, sed rate 64. Creatinine 0.73. Procalcitonin 1.21; yesterday's procalcitonin was 1.93. Lactic acid negative. Uric acid negative. The fluid that was obtained yesterday with aspirate of the joint had 800,000 red cells and 6000 white cells, predominantly polys. Culture from that is negative so far. The PCR from that joint aspirate has been sent to [facility] but results are not expected for 2-3 days. Micro studies include negative blood cultures and gram stain, negative MRSA screen of the nares, the negative cultures so far from yesterday's aspirate, and pending fungal culture and PCR. IMAGING: Of the knee done yesterday showed no postop abnormalities. The prosthetic knee is in the right location. DVT study on the left lower extremity was negative. IMPRESSION: My overall sense of this patient is that she is not infected. In my experience of looking at prosthetic joints postoperatively for consideration of possible infection, I have observed that many times a hematoma can appear as an infection. That said, I am not completely sanguine about this and would not be shocked should her knee barrel turner to be infected, but overall my initial clinical impression is that it is not infected and rather this is a hematoma. At this point we are awaiting her blood cultures as well as yesterday's aspirate. Dr. Greene and I have discussed this case in person and we agree that opening up the knee for additional cultures and examination is a reasonable thing to do. Those additional cultures will be sent both for routine and fungal cultures, as well as for bacterial and fungal PCR to the [facility]. The patient has already been started on antibiotics. Ordinarily I would have waited in a case such as this, where infection is unlikely, but the antibiotics already been started so at this point we will continue RECOMMENDATIONS: 1. Will continue with vancomycin and Zosyn for now, though I do not think this is a knee infection. 2. We await the pending cultures already in hand. 3. We await the additional cultures and PCR studies to be obtained by Dr. Greene later today. Thank you very much for this consult. CALDERON
--- NOTE | 2017-03-29 17:39 | PCM.HPANE ---
Patient Data Date of Service: Mar 29, 2017 Surgeon Admitting Provider:Carl Martinez MD Attending Provider:Carl Martinez MD Primary Care Physician:Jenny Gustafson MD Other Provider: Reason for Visit Septic,Arthritis Ht/WT & BMI Height (Feet): 4 Height (Inches): 9 Weight (Kilograms): 69.09 Body Mass Index Allergies Coded Allergies: No Known Allergies (Verified Allergy, Unknown, 03/28/17) Past Anesthesia History Anesthesia History: Denies:: Abnormal Airway, Anesthesia Reactions, Difficult Intubation, Fam Anesthesia Reaction, Fam Malignant Hypertherm, Malignant Hyperthermia Diabetes History Hx Diabetes?: No MRSA MRSA: No Medications Blood Thinner: Aspirin Active Scripts Hydroxyzine Pamoate (HydrOXYzine Pamoate)25 Mg Qvwfshk76 Mg PO Q6H PRN For Spasm and/or Restlessness #60 CAPSULE Prov:Smita Johnson PA-C 03/23/17 Reported Medications Polyethylene Glycol 3350 (Miralax)17 Gm Powd.pack17 Gm PO DAILY PRN For Constipation 03/28/17 Docusate Sodium (Colace)100 Mg Moouewl727 Mg PO BID PRN For Constipation Ref 0 03/28/17 Hydrocodone-Acetaminophen 7.5-325 mg 1 Each Tablet1-2 Tablet PO Q4H PRN For Pain Ref 0 03/28/17 Metoprolol Succinate ER 100 Mg Tab.er.24h50 Mg PO HS Ref 0 03/28/17 Gabapentin 600 Mg Qekrqk912 Mg PO HS Ref 0 07/19/16 Cholecalciferol (Vitamin D3) (Vitamin D)1,000 Unit Capsule1,000 Unit PO DAILY # 1 BOTTLE Ref 0 07/15/16 Metoprolol Succinate ER 100 Mg Tab.er.07b328 Mg PO QAM Ref 0 07/15/16 Atorvastatin (Lipitor)40 Mg Clwdnt99 Mg PO DAILY Ref 0 07/15/16 Discontinued Reported Medications Metoprolol Succinate ER 50 Mg Tab.er.24h50 Mg PO HS Ref 0 07/19/16 Acetaminophen 325 Mg Tbmwqb773 Mg PO BID PRN For Fever Ref 0 03/14/17 Discontinued Scripts [Hydrocodone/Acetaminophen] ([place] 7.5-325)1 TABLET TABLET No Conflict Check1-2 Tablet PO Q4H PRN For Moderate Pain #90 Max 8 per day Prov:Smita Johnson PA-C 03/23/17 Docusate Sodium (Colace)100 Mg Apojcuu105 Mg PO BID constipation #30 CAPSULE Prov:Kevin Heck POOL 07/22/16 History History of ENT Problems?: Yes HEENT History: Denies:: Abnormal Airway Cataracts (repaired) Difficult Intubation Dysphagia Glaucoma Hearing Problem Sinus Problem TMJ Denture Type: Full- Upper Teeth Condition: Within Normal Limits Hx of Heart Problems?: Yes Cardiovascular History: Denies:: Cardiac Surgery Chest Pain Congestive Heart Failure Edema Heart Murmur Hypertension Irregular Heartbeat Pacemaker Thrombophlebitis Hx of Respiratory Problem?: Yes Respiratory History: Positive for:: Pneumonia (10 yrs ago) Denies:: Asthma COPD Chest Surgery Dyspnea Emphysema Hemoptysis Tuberculosis Use of C-PAP Machine Hx Neurologic Problems?: No Neurological History: Denies:: Alzheimer's Disease CVA Dementia Dizziness Headaches Multiple Sclerosis Parkinson's Disease Seizures Hx of GI Problems?: No Hx of Problems?: No Genitourinary History: Denies:: HX of Hemodialysis Urinary Tract Infection HX of Peritoneal Dialysis: No Female Hx: Denies:: Currently Endometriosis Pelvic Inflammatory Problems with Breasts? Skin History: Positive for:: History Skin Disorders? (Eczema) Denies:: Pressure Ulcers Hx Musculoskeletal Problems?: Yes Musculoskeletal History: Positive for:: Degenerative Joint Joint Replacement (L Hip, left knee) Denies:: Back Injury Musculoskeletal Trauma Systemic Lupus Hx of Psycho/Social Problems?: No Hx Surgeries?: Yes (Hip fracture, left knee) Hx Any Other Health Problems?: Yes Other History: Positive for:: Hospitalization (Jul 2016 Hip fracture) Denies:: Cancer Endocrine Disease Thyroid Disease History Blood Transfusions: Positive for:: Accept Blood Products? Denies:: Blood Transfuse Reaction Blood Transfusions Hx Diabetes: No Hx Alcohol Use: Yes (1-2 glasses of wine/week)Hx Substance Use: No Smoking Status: Never Smoker Have You Smoked inLast 12 mo: No Stop/Bang Treated for Sleep Apnea?: No Do You Have a CPAP Machine?: No S-Snoring: Do You Snore Loudly: No T-Tired: feel tired, fatigued: No O-Obsered: Observed not breath: No P-Blood Pressure: treated: Yes B- Body Mass Index > 35 kg/m2: No A- Age over 50: Yes N- Neck Large Circumference: No G- Gender Male: No SHAILESH Total Score: 1 Risk Assessment Category Category 1A: Patient has history of documented sleep apnea, and HAS NOT received any narcotic, sedative or anesthesia administration during this stay. Category 1B: Patient has history of documented sleep apnea, and HAS received any narcotic , sedative or anesthesia administration during this stay Category 2: Patient has SUSPECTED Obstructive Sleep Apnea, and HAS received any narcotic , sedative or anesthesia administration during this stay. Category 3: Patient has SUSPECTED Obstructive Sleep Apnea and HAS NOT received narcotic, sedative or anesthesia administration during this stay. Category 4: Outpatient in Procedural Areas with known sleep apnea or who screen positive for High Risk via the STOP/BANG questionnaire. Exam Exam Vital Signs Vital Signs Date Time Temp Pulse Resp B/P Pulse Ox O2 Delivery O2 Flow Rate FiO2 03/29/17 12:53 36.8 61 18 126/80 91 Room Air General Appearance: Alert, Oriented X3, Cooperative, No Acute Distress HEENT/AIRWAY: MP 2 Lungs: Clear to Auscultation Heart: Exam Unremarkable Meds/Labs/Diagnostics Admission Meds Current Medications Piperacillin Sod/ Tazobactam Sod 3.375 gm/Dextrose/ Water 50 ml @ 12.5 mls/hr Q8H IV Last administered on 03/29/17 12:44; Start 03/28/17 at 20:30 Vancomycin/0.9 % Sod Chloride/ Premix (Vancomycin Inj/ IV Premix) 200 ml @ 133.333 mls/hr Q12H IV Last administered on 03/29/17 02:25; Start 03/29/17 at 02:00 Gabapentin (Neurontin) 600 mg HS PO Last administered on 03/28/17 20:20; Start 03/28/17 at 21:00 Ibuprofen (Motrin) 600 mg ONCE ONCE PO Last administered on 03/29/17 08:36; Start 03/29/17 at 07:45; Stop 03/29/17 at 07:52; Status DC Labs Test 03/28/17 11:15 03/28/17 13:27 03/28/17 17:41 03/28/17 18:27 White Blood Count 5.9th/mm3 (3.8-10.1) Red Blood Count 3.19mil/mm3 (3.90-5.20) Hemoglobin 10.6g/dL (12.0-15.6) Hematocrit 32.6% (35.0-46.0) Mean Corpuscular Volume 102.2fL (81-100) Mean Corpuscular Hemoglobin 33.2pg (27.0-35.0) Mean Corpuscular Hemoglobin Concent 32.5% (32.0-37.0) Red Cell Distribution Width 12.8% (12.3-15.4) Platelet Count 464bil/L (150-400) Neutrophils (%) (Auto) 65.3% (40-74) Lymphocytes (%) (Auto) 20.8% (14-46) Monocytes (%) (Auto) 10.8% (4-12) Eosinophils (%) (Auto) 2.5% (0-5) Basophils (%) (Auto) 0.3% (0-3) Erythrocyte Sedimentation Rate 64mm/hr (0-40) Sodium Level 138mEq/L (134-144) Potassium Level 3.9mEq/L (3.5-5.2) Chloride Level 97mEq/L (97-108) Carbon Dioxide Level 23mmol/L (18-29) Blood Urea Nitrogen 8mg/dL (8-27) Estimat Glomerular Filtration Rate 123mL/min (>59) Glucose Level 103mg/dL (60-99) Hemoglobin A1c 5.6% (4.8-5.6) Calcium Level 9.5mg/dL (8.5-10.1) C-Reactive Protein 20.8mg/dL (0.0-0.5) Hold [place] Top Tube Received (Received) Hold Urine Received (Received) Body Fluid Source Synovial fluid Body Fluid Color Bloody (Clear) Body Fluid Appearance Turbid Body Fluid WBC 6250/mm3 Body Fluid RBC 676373/mm3 Body Fluid Polynuclear WBCs 94% Body Fluid Lymphocytes 3% Body Fluid Monocytes 3% Body Fluid Eosinophils 0% Body Fluid Basophils 0% Lactic Acid Level 0.9mmol/L (0.4-2.0) Test 03/29/17 05:11 03/29/17 10:35 Creatinine 0.73mg/dL (0.57-1.00) Procalcitonin 1.21ng/mL (0.00-0.08) Plan Impression Patient chart reviewed, patient interviewed and anesthestic plan with risks, benefits, and alternatives discussed, and informed consent obtained. ASA Physical Status: ASA2 Plus Emergency (Emergency due to septic joint) Anesthetic Plan: GA Bene/Risks/Altern/Consents: Yes HP Complete Prior to Induction: Yes Paulie Perez MD Mar 29, 2017 17:39
[2017-03-29] MEDS ORDERED: Lactated Ringer's 500 ML IV PRN ×2 (17:52→19:13)
[2017-03-29] MEDS ORDERED: Lactated Ringer's 1,000 ML IV SCH ×2 (17:52→19:13)
[2017-03-29] MEDS ORDERED: Ondansetron 2 mg/mL 2 mL Inj IVPUSH PRN ×3 (17:55→20:00)
[2017-03-29] MEDS ORDERED: Dexamethasone 4 mg/mL Inj IVPUSH PRN ×2 (17:55→19:15)
[2017-03-29] MEDS ORDERED: EPHEDrine Sulfate 50 mg/mL Inj IVPUSH PRN ×2 (17:55→19:15)
[2017-03-29] MEDS ORDERED: Bupivacaine Liposome 1.3% 20 mL Inj ONE (18:07)
[2017-03-29] MEDS ORDERED: Tranexamic Acid 100 mg/mL 10 mL Inj ONE (18:26)
[2017-03-29] MEDS ORDERED: 0.9% Sodium Chloride 100 ML ONE (18:26)
[2017-03-29] MEDS ORDERED: Bupivacaine Liposome 1.3% 20 mL Inj INFILTRATE ONE (18:46)
[2017-03-29] MEDS ORDERED: Bupivacaine-MPF 0.25% 30 mL Inj INFILTRATE ONE (18:47)
[2017-03-29] MEDS ORDERED: Sodium Chloride LOK Flush 10 mL Syringe IRRIGATION ONE (18:47)
[2017-03-29] MEDS ORDERED: HYDROmorphone 1 mg/mL Inj IVPUSH PRN (19:15)
[2017-03-29] MEDS ORDERED: Labetalol 5 mg/mL 20 mL Inj IV PRN (19:15)
[2017-03-29] MEDS ORDERED: Phenylephrine 10,000 mCg/mL Inj IVPUSH PRN (19:15)
[2017-03-29] MEDS ORDERED: fentaNYL-PF 50 mCg/mL 2 mL Inj IVPUSH PRN (19:15)
--- NOTE | 2017-03-29 19:37 | NUR ---
Off Unit Pt off unit to OR at 1726, A&OX3, KAMARA, IV SL x2, Call to pharmacy to send up pt Vancomycin dose as it was late d/t incompatibility with Zosyn. Report given to Charu Shrestha RN prior to pt pickup. Pt tearful - excited to finally be having her surgery. Consent signed. Chart with pt.
[2017-03-29] MEDS ORDERED: diphenhydrAMINE 25 mg Capsule PO PRN (20:00)
[2017-03-29] MEDS ORDERED: Acetaminophen IV 1,000 MG in IV Premix 1 EACH IV ONE (20:00)
[2017-03-29] MEDS: fentaNYL-PF 50 mCg/mL 2 mL Inj IVPUSH PRN ×2 (20:15→20:30)
[2017-03-29] MEDS: HYDROmorphone 1 mg/mL Inj IVPUSH PRN ×3 (20:20→20:50)
--- NOTE | 2017-03-29 21:16 | PCM.ANEP1 ---
Post Anesthesia PACU Phase 1 Assessment Vital Signs Vital Signs Date Time Temp Pulse Resp B/P Pulse Ox O2 Delivery O2 Flow Rate FiO2 03/29/17 20:55 80 14 148/80 98 Nasal Cannula 2 03/29/17 20:45 80 13 169/85 98 Nasal Cannula 2 03/29/17 20:40 68 15 171/68 98 Nasal Cannula 2 03/29/17 20:35 36.7 83 14 161/82 98 Nasal Cannula 2 03/29/17 20:30 87 13 170/91 98 Nasal Cannula 2 03/29/17 20:25 87 15 171/84 98 Nasal Cannula 2 03/29/17 20:20 88 15 170/86 98 Nasal Cannula 2 03/29/17 20:15 88 14 170/85 98 Nasal Cannula 2 03/29/17 20:10 88 12 142/83 98 Nasal Cannula 2 03/29/17 20:05 88 12 141/80 98 Nasal Cannula 2 03/29/17 20:00 36.4 87 14 148/77 98 Nasal Cannula 2 Anesthetic Administered: GA Level of Alertness: Awake, talking KAMARA's with Equal Strength: No Pain: Yes (NURSE GAVE HER PAIN MED) Pain Scale Score: 6 Nausea or Vomiting: No CV Function & Hydration Stable: Yes Airway Device: Oxygen Delivery: Room Air Lungs: Clear to Auscultation Dermatome Level: Full Sensation PACU Phase 2 Assessment Complications: No Follow up Care: N/A Patient Instructions Provided: N/A Paulie Perez MD Mar 29, 2017 21:16
--- NOTE | 2017-03-29 22:19 | NUR ---
IS instruction complete, pt able to reach 2000. Explained pt needs to do 10x every 4 hours
--- NOTE | 2017-03-29 22:39 | NUR ---
RETURNED FROM PACU: 2109 Pt. returned from PACU in her hospital bed. Awake and talking. Denies pain but anxious for fear of "getting a muscle spasm like the one she had this am and pm." Given scheduled Gabapentin 600 mg and IV Tylenol a one time dose. Has hemovac in place on left knee. Dressing is CDI. Left foot warm to the touch with full sensation, able to wiggle all toes and all foot. Placed on cont. pulse oximetry. Pt's and daughter at her bed side. Pt. requesting popcicle and water, reports dry mouth, explained this is expected with surgery due to the medications given in OR. Tolerating PO intake fluids, denies n/v. Encouraged deep breathing and coughing. On going care.
--- NOTE | 2017-03-29 23:30 | OP ---
[address] [address] OPERATIVE REPORT PATIENT: BYRON HERRERA : 1955 MR#: [id number] ADMIT: 03/28/2017 JOB ID: [id number] DATE OF SURGERY: 03/29/2017 PREOPERATIVE DIAGNOSIS(ES): Left knee infected hematoma. POSTOPERATIVE DIAGNOSIS(ES): Left knee infected hematoma. PROCEDURE: Left knee irrigation and debridement with polyethylene exchange of total knee arthroplasty. SURGEON: Gregg Greene DO. ANESTHESIA: General. INDICATIONS: The patient is a 61-year-old female who is one week postop from a left total knee arthroplasty, who was doing well, but developed increasing pain, warmth, redness, swelling and chills, and was brought to the hospital for concern of infection. I did an aspiration of the knee and was concerned by the elevated white blood cell count and elevated PMNs at 94% within the fluid aspirate, and felt that this could represent an infected hematoma. I discussed treatment options with the patient and she wished to proceed with an I and D with polyethylene exchange and drain placement. We discussed risks, benefits and possible complications of surgery including, but not limited to, injury to nerves and vessels, need for additional procedures, incomplete resolution of the infection, or the fact that it may not be infected and that this may be a washout for a hematoma without infection. She had good understanding and wished to proceed. phlebotomist lab assistant was required for the successful completion of procedure. PROCEDURE IN DETAIL: Patient was brought to the operating room. She was given a general anesthetic. The left lower extremity was sterilely prepped and draped. I elevated the leg for three minutes and then a tourniquet was placed was put up. Her previous incision was opened back up. She was noted to have organized hematoma in the subcutaneous tissues superficial to the quad tendon. This was debrided and some of the tissue was sent for culture and sensitivity, and irrigated. I then opened up the knee joint and she had a hematoma within the knee joint with some organized hematoma and some questionable appearing areas of tissue which were sent for culture, sensitivity, fungus and PCR analysis. A synovectomy was performed removing all questionable appearing material. There was no purulence noted and no obvious gross signs of infection. Her polyethylene component was removed. The knee was copiously irrigated with 9 L of irrigation and a new DePuy Attune size 6, 5 thickness poly was impacted into position and a medium Hemovac drain was placed exiting superolaterally. Mixture of saline, Exparel and Marcaine was injected in the knee as an adjunct local anesthetic and the wound was then closed with and 0 Vicryl to close the quad tendon and medial retinaculum. The subcu was closed with 2-0 Vicryl. The skin was closed with a running subcuticular Stratafix suture, and Steri-Strips and sterile dressing were applied. Patient tolerated the procedure well. Blood loss was 50 cc. POSTOPERATIVE PROTOCOL: Have the patient weightbear to tolerance and begin working on range of motion. Leave her drain for likely about 24 hours. Anticipate removing this tomorrow. Will await cultures and input from Infectious Disease regarding antibiotic management.
[2017-03-30 00:20] VITALS: BP 154/89; PULSE 78; RESP 20; O2SAT 94
[2017-03-30] MEDS: Sodium Chloride LOK Flush 10 mL Syringe IVFLUSH SCH ×3 (00:30→16:30)
[2017-03-30] MEDS ORDERED: Vancomycin Serum Trough XX ONE (01:30)
[2017-03-30] MEDS: Sodium Chloride LOK Flush 10 mL Syringe IV SCH ×4 (02:37→23:55)
[2017-03-30] MEDS: Vancomycin 1 Gm/200 mL NS Premix IV SCH (02:46)
[2017-03-30 04:22] VITALS: BP 102/65; PULSE 59; RESP 16; O2SAT 98
[2017-03-30] MEDS: Piper-Tazo 3.375 Gm/50 mL D5W Minibag Plus - Q8H over 4 hrs IV SCH ×6 (04:35→20:45)
[2017-03-30] MEDS: hydrOXYzine Pamoate 25 mg Capsule PO PRN (04:35)
[2017-03-30] MEDS: HYDROcodone-APAP 7.5-325 mg Tablet PO PRN ×3 (04:36→12:31)
[2017-03-30 05:28] LABS: BASOPHILS % (AUTO) 0.1 % (0-3); EOSINOPHILS % (AUTO) 0 % (0-5); MONOCYTES % (AUTO) 3.3 % (4-12); Mean Corpuscular Hemoglobin 33.1 pg (27.0-35.0); Mean Corpuscular Volume 102.6 fL (81-100); NEUTROPHILS % (AUTO) 88.3 % (40-74); Platelet Count 514 bil/L (150-400)
[2017-03-30] MEDS: 0.9% Sodium Chloride 1,000 ML IV SCH (06:00)
--- NOTE | 2017-03-30 08:21 | PCM.PNMED ---
Subjective Date of Service Mar 30, 2017 Subjective Patient seen and examined. Feeling good. No complaints. Vitals stable. Exam Vital Signs Vital Sign - Last Date Time Temp Pulse Resp B/P Pulse Ox O2 Delivery O2 Flow Rate FiO2 03/30/17 04:22 36.6 59 16 102/65 98 Nasal Cannula 3.00 Intake and Output 03/29/17 03/29/17 03/30/17 Cumulative From/Thru 15:00 23:00 07:00 03/28/17 10:42 - 03/30/17 06:08 Intake Total 944 ml 886 ml 1552 ml 6384 ml Output Total 800 ml 1420 ml 3370 ml Balance 944 ml 86 ml 132 ml 3014 ml Intake Oral 0 ml 640 ml 1940 ml IV Total 944 ml 886 ml 912 ml 4444 ml Output Urine Total 800 ml 1350 ml 3300 ml Drainage Total 70 ml 70 ml # Voids 1 # Bowel Movements 0 0 1 Exam General: Middle-aged female lying in bed and in mild distress Cardiovascular: Regular rate and rhythm without murmurs, rubs, or gallops appreciated. circulation intact to the left leg Pulmonary: Clear to auscultation bilaterally without crackles, wheezes, or rhonchi. Normal respiratory effort with no use of accessory muscles. Abdomen: Soft, nontender, nondistended, bowel sounds present. No hepatosplenomegaly or masses appreciated. Extremities: Right lower extremity without cyanosis, clubbing or erythema. Left lower extremity wrapped in bandage, circulation intact Neurological: Cranial nerves grossly intact. Normal muscle strength, tone, and bulk. Reflexes, coordination, and sensory function within normal limits. No known gait impairment.e. Lab and Diagnostics Result Diagram: 03/30/1745603/30/17456 Microbiology Blood cultures 2 pending. . X-Rays, CTs and MRIs US VEINOUS LEG DUPLEX UNILATERAL, LEFT IMPRESSION: No evidence of deep vein thrombosis involving the left lower extremity. Dictated by: Barbara Ba MD, PhD on 03/28/2017 at 12:01 X-RAY LEFT KNEE, THREE VIEWS IMPRESSION: No significant postoperative abnormality can be seen. Dictated by: Eric Katz M.D. on 03/28/2017 at 12:07 . Assessment & Plan Jazmín Lee is a 61-year-old female with a past medical history significant for hypertension, hyperlipidemia, and osteoarthritis who presents to [facility] emergency Department from her physical therapy office due to left knee pain. 1. Acute septic./inflammed left knee, present on admission. s/p surgery Active. - Patient underwent successful total knee replacement on 03/21/2017. Now presents with significant tenderness to palpation, erythema and edema with very little range of motion. Afebrile without leukocytosis. - ESR 64 and CRP 20.8 in the context of recent surgery. - Pro calcitonin elevated at 1.93. Trended down to 1.21. - Doppler ultrasound of left knee did not demonstrate any deep venous thrombosis , as above. - Started on Zosyn IV 3.375 g and vancomycin with dosing per pharmacist. Continue both Zosyn 3.375 g every 8 hours and vancomycin with dosing per pharmacist. - Continue hydrocodone 7.5-325 mg every 6 hours as needed for moderate pain and gabapentin 600 mg daily at bedtime. - Arthrocentesis revealed many WBCs and RBCs, this could be just blood, however considering the turbid nature of fluid, infection cannot be ruled out. Synovial fluid culture - no growth so far - surgery done yesterday, organized hematomas, some tissues was removed, cultures sent - PT today Chronic problems: 2. Hypertension, present on admission. Stable. - Continue metoprolol succinate 100 mg every morning and 50 mg every afternoon. 3. Hyperlipidemia, present on admission. Stable. - Continue atorvastatin 40 mg daily at bedtime. DNR/DNI post surgery PRN antiemetics: Zofran and Maalox. PRN bowel regimen: Senna and MiraLAX. PRN analgesics: Tylenol. Patient is admitted under inpatient status with expected length of stay greater than 2 midnights due to severity of presenting symptoms, risk of adverse event, and complexity of treatment plan. . VTE Mechanical Devices: Intermittant Pneumatic CD, Anti-Embolic stockings Resuscitation Status: DNR/DNI:Do Not Resuscitate/Intubate Time spent 35 mins Carl Martinez MD Mar 30, 2017 08:17
[2017-03-30] MEDS: MeTOProlol XL 50 mg ER24 Tablet PO SCH ×2 (08:29→20:43)
[2017-03-30 11:00] VITALS: BP 111/68; PULSE 70; RESP 18; O2SAT 96
--- NOTE | 2017-03-30 12:21 | PROG NOTE ---
[address] [address] PROGRESS NOTE PATIENT: BYRON HERRERA : 1955 MR#: [id number] ADMIT: 03/28/2017 JOB ID: [id number] DATE: 03/30/2017 INFECTIOUS DISEASE FOLLOWUP NOTE: REASON FOR FOLLOWUP: Possible infected prosthetic knee. INTERVAL HISTORY: Yesterday the patient underwent debridement by Dr. Greene. He was concerned about the possibility of infection of the prosthetic joint and/or an infected hematoma. He went in and performed a debridement. He found organized hematoma and some questionable areas of tissue that were sent for culture as well as PCR studies. He did not see obvious purulence and closed the wound. At this point we are waiting those cultures. The patient tells me that overnight she has felt reasonably well. No fevers, chills, or sweats. No pulmonary symptoms. She has the appropriate postop pain from this recent exploration. PHYSICAL EXAMINATION: Reveals an afebrile woman temp 36.6, blood pressure 102/65. She is in no acute distress. Lungs are clear. Abdomen benign. Leg is wrapped in a large postop dressing I did not remove. There is a drain protruding. LABORATORIES: Include white count 8200. Creatinine 0.64. Procalcitonin 1.21. Streptozyme is back and is negative. Many cultures are pending now including blood cultures. There was a MRSA screen of the nose which is negative. The initial synovial fluid culture from the aspirate two days ago was negative. The additional cultures from surgery yesterday are, of course, all pending. PCR studies are also all pending. IMAGING: No new imaging is available. IMPRESSION: As yesterday, my initial gestalt is that the patient does not have an infection of her knee or an infected hematoma. I would continue antibiotics while we cautiously await cultures and PCR studies, which may not be forthcoming until Monday. RECOMMENDATIONS: 1. Will drop the vancomycin now as we have no evidence for MRSA. 2. Will continue with Zosyn. 3. Will continue to follow this patient with you while we await additional maturation of cultures. If all cultures are negative at several days, and it remains Dr. Greene's opinion that there was not infection, I would feel comfortable stopping all antibiotics once we have back the culture and PCR results. Thank you very much.
--- NOTE | 2017-03-30 14:51 | NUR ---
Pain/Activity/BM Patient up with PT this am. States pain is caused more from muscle spasms than actual surgical pain. Spoke to MD about ordering a muscle relaxer in addition to pain meds. Agreeable to plan. Ambulating in room with SBA and FWW, in halls with PT and staff. HV intact per ortho. Patient given bowel meds this am, with successful BM output this afternoon.
[2017-03-30 15:02] VITALS: BP 97/56; PULSE 72; RESP 18; O2SAT 97
--- NOTE | 2017-03-30 16:12 | PCM.PNORTH ---
Subjective Date of Service: Mar 30, 2017 Visit Information: Reason for Visit Septic,Arthritis Surgery/Surgery Date left knee I&D 03/28/2017 Post-Op Day # 1 Date of Admission: Mar 28, 2017 at 13:24 Hospital Day # Subjective Patient complains of incisional pain. She states her knee feels very much like it did last week Right after surgery. Postop General: No Shortness of Breath, No Chest Pain, Good Appetite Pain Management: PO, IV Push Objective Exam Objective Patient is seen sitting up in bed Vital Signs and I/O Vital Sign - Last Date Time Temp Pulse Resp B/P Pulse Ox O2 Delivery O2 Flow Rate FiO2 03/30/17 15:02 36.7 72 18 97/56 97 Room Air 03/30/17 11:00 2.00 Intake and Output 03/29/17 03/29/17 03/30/17 Cumulative From/Thru 15:00 23:00 07:00 03/28/17 10:42 - 03/30/17 06:08 Intake Total 944 ml 886 ml 1552 ml 6384 ml Output Total 800 ml 1420 ml 3370 ml Balance 944 ml 86 ml 132 ml 3014 ml Intake Oral 0 ml 640 ml 1940 ml IV Total 944 ml 886 ml 912 ml 4444 ml Output Urine Total 800 ml 1350 ml 3300 ml Drainage Total 70 ml 70 ml # Voids 1 # Bowel Movements 0 0 1 Lab & Micro Results Laboratory Tests Test 03/30/17 01:20 03/30/17 04:57 Vancomycin Level Trough 15.9mcg/mL White Blood Count 8.2th/mm3 (3.8-10.1) Red Blood Count 2.69mil/mm3 (3.90-5.20) Hemoglobin 8.9g/dL (12.0-15.6) Hematocrit 27.6% (35.0-46.0) Mean Corpuscular Volume 102.6fL (81-100) Mean Corpuscular Hemoglobin 33.1pg (27.0-35.0) Mean Corpuscular Hemoglobin Concent 32.2% (32.0-37.0) Red Cell Distribution Width 12.6% (12.3-15.4) Platelet Count 514bil/L (150-400) Neutrophils (%) (Auto) 88.3% (40-74) Lymphocytes (%) (Auto) 8.1% (14-46) Monocytes (%) (Auto) 3.3% (4-12) Eosinophils (%) (Auto) 0% (0-5) Basophils (%) (Auto) 0.1% (0-3) Sodium Level 139mEq/L (134-144) Potassium Level 4.2mEq/L (3.5-5.2) Chloride Level 105mEq/L (97-108) Carbon Dioxide Level 22mmol/L (18-29) Blood Urea Nitrogen 7mg/dL (8-27) Creatinine 0.64mg/dL (0.57-1.00) Estimat Glomerular Filtration Rate 134mL/min (>59) Glucose Level 131mg/dL (60-99) Calcium Level 8.4mg/dL (8.5-10.1) Procalcitonin 0.77ng/mL (0.00-0.08) Microbiology 03/28/17 Blood Culture - Preliminary, Resulted No growth at 2 days; culture examined... 03/29/17 Fungal Culture, Received Pending 03/28/17 MRSA (PCR) - Final, Complete 03/29/17 , Received Pending 03/29/17 Bacteria Detection (PCR), Received Pending Result Diagram: 03/30/17 0457 03/30/17 0457 General Appearance: Alert, Oriented X3, Cooperative, No Acute Distress Extremities: Distal Pulses Palpable, No Compartment Syndrom Noted, Thigh & Calf Soft/Nontender Postop Sensory Motor: Distal Motor Intact, Distal Sensation Intact, NVI Distally SURGICAL WOUND : Wound Location/Description Left knee: Dressing is clean, dry and intact Drain Location Body Site: Head Wound Drainage Type: Hemovac Activity: Activity per PT Catheters: None Assessment & Plan Impression Status post left knee I&D and evacuation of hematoma Problems: Plan Weightbearing: Weightbearing as tolerated with walker DVT prophylaxis: aspirin 325 mg twice a day 6 weeks Physical therapy for transfers, progressive ambulation, therapeutic exercise Wound care: PA will change dressing on postop day 2 We appreciate the hospitalist care for this patient Intraoperative cultures are pending. We will await antibiotic decisions by Dr. Guerra Follow-up plan: In 2 weeks at [facility] with PA for wound check and at [address] Greene with x-rays Pain Management: Oxycodone, Vistaril VTE Prophylaxis: SCDs, Other (aspirin 325 mg twice a day) Resuscitation Status: DNR/DNI:Do Not Resuscitate/Intubate Smita Johnson PA-C Mar 30, 2017 16:12
[2017-03-30] MEDS: HYDROcodone-APAP 5-325 mg Tablet PO PRN (16:42)
[2017-03-30] MEDS: HYDROmorphone 1 mg/mL Inj IVPUSH PRN (18:39)
[2017-03-30 20:32] VITALS: BP 112/73; PULSE 60; RESP 18; O2SAT 97
[2017-03-31] MEDS: Sodium Chloride LOK Flush 10 mL Syringe IVFLUSH SCH ×3 (00:30→16:30)
--- NOTE | 2017-03-31 02:55 | NUR ---
Pain/Mobility Patient rating pain to left knee around a 9/10 and states its more spasms than incisional pain. Receiving Oxycodone 10mg PO [id number] PRN. Patient requesting to be woken up throughout the night for pain management. Also receiving Flexeril 10mg PO TID PRN. Upon pain reassessments, patient noted to be resting with eyes closed. Patient up to BR with SBA using FWW. Gait steady. Denies lightheadedness/dizziness.
[2017-03-31] MEDS: Piper-Tazo 3.375 Gm/50 mL D5W Minibag Plus - Q8H over 4 hrs IV SCH ×6 (04:28→20:32)
[2017-03-31 04:51] VITALS: BP 147/88; PULSE 76; RESP 18; O2SAT 94
[2017-03-31] MEDS: Sodium Chloride LOK Flush 10 mL Syringe IV SCH ×2 (08:09→16:30)
[2017-03-31] MEDS: MeTOProlol XL 50 mg ER24 Tablet PO SCH ×2 (08:12→20:31)
[2017-03-31] MEDS: HYDROcodone-APAP 5-325 mg Tablet PO PRN (08:32)
--- NOTE | 2017-03-31 13:50 | PROG NOTE ---
[address] [address] PROGRESS NOTE PATIENT: BYRON HERRERA : 1955 MR#: [id number] ADMIT: 03/28/2017 JOB ID: [id number] DATE: 03/31/2017 SUBJECTIVE: Patient seen and examined. Doing well. She states that her knee is feeling better and having less pain. She is not complaining of any fevers and chills. She does have some spasms. OBJECTIVE: Vital signs: Blood pressure 147/88, pulse rate 76, respirations 18, temperature 36.7. She is alert and cooperative, in no acute distress. Left knee surgical dressing is in good condition with no saturation. Her Hemovac drain is in place. She is able to move her toes. She has no calf pain or tenderness. LABORATORY EVALUATION: Hemoglobin 7.9. Her microbiology shows no growth on her specimens to date. PCR is pending. ASSESSMENT: Left knee hematoma, status post I and D, with polyethylene exchange. PLAN: Will have the patient continue working with physical therapy and plan for dressing change tomorrow. I agree with Infectious Disease. If her cultures continue to be negative, I think we can discontinue antibiotics on this patient and treat this as hematoma without infection. It will, of course, be much more reassuring when we get the PCR back from [facility].
[2017-03-31 14:26] VITALS: BP 115/78; PULSE 63; RESP 16; O2SAT 93
--- NOTE | 2017-03-31 17:28 | NUR ---
Social Work: Readiness for Discharge/Multidisciplinary Rounds D: EMR reviewed. Pt is on day 3 of hospitalization. Pt discussed in multidisciplinary rounds and is not medically stable for discharge at this time, anticipate 1 more day pending ID and Ortho. No SW needs identified during multidisciplinary rounds, no MD orders received. SW will continue to follow. A: Pt who is independent at baseline P: Pt anticipated to discharge home tomorrow with family to transport via POV. No SW needs identified at this time, no MD orders received. SW will continue to follow. TONY Castro
--- NOTE | 2017-03-31 17:56 | NUR ---
Pain Baltic x 2 & flexeril admin together w/ a good effect in a.m., patient c/o moderate pain in later afternoon, [place] x 2 by itself ineffective, admin flexeril 30 minutes after w/ a good effect. Continuing to monitor.
--- NOTE | 2017-03-31 18:39 | PCM.PNMED ---
Subjective Date of Service Mar 31, 2017 Subjective Patient seen and examined. No complaints. vitals noted. Exam Vital Signs Vital Sign - Last Date Time Temp Pulse Resp B/P Pulse Ox O2 Delivery O2 Flow Rate FiO2 03/31/17 14:26 36.6 63 16 115/78 93 Room Air 03/30/17 11:00 2.00 Intake and Output 03/30/17 03/30/17 03/31/17 Cumulative From/Thru 15:00 23:00 07:00 03/28/17 10:42 - 03/31/17 06:06 Intake Total 1240 ml 656 ml 8280 ml Output Total 1190 ml 1715 ml 6275 ml Balance 50 ml -1059 ml 2005 ml Intake Oral 1240 ml 550 ml 3730 ml IV Total 106 ml 4550 ml Output Urine Total 1150 ml 1700 ml 6150 ml Drainage Total 40 ml 15 ml 125 ml # Voids 1 # Bowel Movements 1 2 4 Exam General: Middle-aged female lying in bed and in mild distress Cardiovascular: Regular rate and rhythm without murmurs, rubs, or gallops appreciated. circulation intact to the left leg Pulmonary: Clear to auscultation bilaterally without crackles, wheezes, or rhonchi. Normal respiratory effort with no use of accessory muscles. Abdomen: Soft, nontender, nondistended, bowel sounds present. No hepatosplenomegaly or masses appreciated. Extremities: Right lower extremity without cyanosis, clubbing or erythema. Left lower extremity wrapped in bandage, circulation intact Neurological: Cranial nerves grossly intact. Normal muscle strength, tone, and bulk. Reflexes, coordination, and sensory function within normal limits. No known gait impairment Lab and Diagnostics Result Diagram: 03/31/17 0453 03/30/17 0457 Microbiology Blood cultures 2 pending. . X-Rays, CTs and MRIs US VEINOUS LEG DUPLEX UNILATERAL, LEFT IMPRESSION: No evidence of deep vein thrombosis involving the left lower extremity. Dictated by: Barbara Ba MD, PhD on 03/28/2017 at 12:01 X-RAY LEFT KNEE, THREE VIEWS IMPRESSION: No significant postoperative abnormality can be seen. Dictated by: Eric Katz M.D. on 03/28/2017 at 12:07 . Assessment & Plan Jazmín Lee is a 61-year-old female with a past medical history significant for hypertension, hyperlipidemia, and osteoarthritis who presents to [facility] emergency Department from her physical therapy office due to left knee pain. 1. Acute septic./inflammed left knee, present on admission. s/p surgery Resolving - Patient underwent successful total knee replacement on 03/21/2017. Now presents with significant tenderness to palpation, erythema and edema with very little range of motion. Afebrile without leukocytosis. - ESR 64 and CRP 20.8 in the context of recent surgery. - Pro calcitonin elevated at 1.93. Trended down to 1.21. - Doppler ultrasound of left knee did not demonstrate any deep venous thrombosis , as above. - Started on Zosyn IV 3.375 g and vancomycin with dosing per pharmacist. Continue with zosyn as per ID's res - Continue hydrocodone 7.5-325 mg every 6 hours as needed for moderate pain and gabapentin 600 mg daily at bedtime. - Arthrocentesis revealed many WBCs and RBCs, this could be just blood, however considering the turbid nature of fluid, infection cannot be ruled out. Synovial fluid culture - no growth so far - surgery done yesterday, organized hematomas, some tissues was removed, cultures sent, if cultures negative, will drop abx Chronic problems: 2. Hypertension, present on admission. Stable. - Continue metoprolol succinate 100 mg every morning and 50 mg every afternoon. 3. Hyperlipidemia, present on admission. Stable. - Continue atorvastatin 40 mg daily at bedtime. DNR/DNI post surgery PRN antiemetics: Zofran and Maalox. PRN bowel regimen: Senna and MiraLAX. PRN analgesics: Tylenol. Patient is admitted under inpatient status with expected length of stay greater than 2 midnights due to severity of presenting symptoms, risk of adverse event, and complexity of treatment plan. . VTE Prophylaxis: SCDs, Other (aspirin 325 mg twice a day) VTE Mechanical Devices: Intermittant Pneumatic CD, Anti-Embolic stockings Resuscitation Status: DNR/DNI:Do Not Resuscitate/Intubate Carl Martinez MD Mar 31, 2017 18:39
[2017-03-31] MEDS: HYDROmorphone 1 mg/mL Inj IVPUSH PRN (20:07)
[2017-03-31] MEDS: hydrOXYzine Pamoate 25 mg Capsule PO PRN (20:08)
[2017-03-31 20:35] VITALS: BP 115/74; PULSE 66; RESP 18; O2SAT 96
[2017-04-01] MEDS: Sodium Chloride LOK Flush 10 mL Syringe IVFLUSH SCH ×2 (00:30→08:30)
[2017-04-01] MEDS: HYDROmorphone 1 mg/mL Inj IVPUSH PRN (00:39)
[2017-04-01] MEDS: Sodium Chloride LOK Flush 10 mL Syringe IV SCH ×2 (00:39→08:30)
[2017-04-01] MEDS: hydrOXYzine Pamoate 25 mg Capsule PO PRN ×2 (00:40→09:19)
--- NOTE | 2017-04-01 04:22 | NUR ---
Frank hose/Pain Order to take off CARL wrap to LLE and measure for thigh-high frank hose. Measurements taken and frank hose placed onto operative leg. Receiving Oxycodone and Vistaril PO for pain management. Pain down from a 10/10 to 2/10. Up to BR with SBA using FWW.
[2017-04-01] MEDS: Piper-Tazo 3.375 Gm/50 mL D5W Minibag Plus - Q8H over 4 hrs IV SCH ×4 (04:52→13:30)
[2017-04-01 06:05] VITALS: BP 113/75; PULSE 75; RESP 16; O2SAT 99
[2017-04-01] MEDS: MeTOProlol XL 50 mg ER24 Tablet PO SCH (08:30)
[2017-04-01 08:50] VITALS: BP 100/71; PULSE 80; RESP 18; O2SAT 96
--- NOTE | 2017-04-01 09:54 | PCM.PNORTH ---
Subjective Date of Service: Apr 01, 2017 Visit Information: Reason for Visit Septic,Arthritis Surgery/Surgery Date Left Knee I&D 03/28/17 Post-Op Day # 3 Date of Admission: Mar 28, 2017 at 13:24 Hospital Day # Subjective Patient reports that her pain is been under better control with oxycodone. She had a spasm this morning which was quite painful. Flexeril was helpful for relief. She related 85 feet with physical therapy and has done stairs. Postop General: No Shortness of Breath, No Chest Pain, Good Appetite Pain Management: PO, IV Push Objective Exam Objective Patient is seen sitting up in a chair Vital Signs and I/O Vital Sign - Last Date Time Temp Pulse Resp B/P Pulse Ox O2 Delivery O2 Flow Rate FiO2 04/01/17 08:50 37.0 80 18 100/71 96 Room Air 03/30/17 11:00 2.00 Intake and Output 03/31/17 03/31/17 04/01/17 Cumulative From/Thru 15:00 23:00 07:00 03/28/17 10:42 - 04/01/17 04:55 Intake Total 1365 ml 93 ml 9738 ml Output Total 800 ml 7075 ml Balance 565 ml 93 ml 2663 ml Intake Oral 1200 ml 4930 ml IV Total 165 ml 93 ml 4808 ml Output Urine Total 800 ml 6950 ml Drainage Total 125 ml # Voids 1 # Bowel Movements 4 Lab & Micro Results Laboratory Tests Test 04/01/17 05:21 Hemoglobin 8.1g/dL (12.0-15.6) Hematocrit 26.0% (35.0-46.0) Microbiology 03/28/17 Blood Culture - Preliminary, Resulted No growth at 2 days; culture examined... 03/29/17 Fungal Culture, Received Pending 03/28/17 MRSA (PCR) - Final, Complete 03/29/17 , Received Pending 03/29/17 Bacteria Detection (PCR), Received Pending Result Diagram: 04/01/17 0521 03/30/17 0457 General Appearance: Alert, Oriented X3, Cooperative, No Acute Distress Extremities: Distal Pulses Palpable, No Compartment Syndrom Noted, Thigh & Calf Soft/Nontender Postop Sensory Motor: Distal Motor Intact, Distal Sensation Intact, NVI Distally SURGICAL WOUND : Wound Location/Description Left knee: Dressing is clean, dry and intact. Thigh-high BRANDEN hose are in place. Activity: Activity per PT Catheters: None Assessment & Plan Impression POD #3 Left total knee I&D Problems: Plan Weightbearing: Weightbearing as tolerated with walker DVT prophylaxis: aspirin 325 mg twice a day 6 weeks Physical therapy for transfers, progressive ambulation, therapeutic exercise Wound care: Dressing was changed yesterday. We appreciate the hospitalist care for this patient Intraoperative cultures are all negative so far. Discharge plan: Patient may be discharged home today. Patient will resume outpatient physical therapy. We will change her pain management to oxycodone 5- 10 mg every 4 hours and Flexeril 10 mg 3 times a day when necessary spasms She does not need antibiotics at discharge since all cultures have been negative. Follow-up plan: In 2 weeks at [facility] with [facility] for wound check and keep the 05/[address] Greene with x-rays Pain Management: Oxycodone, Vistaril, Dilaudid, [place], cyclobenzaprine VTE Prophylaxis: SCDs, Other (aspirin 325 mg twice a day) Resuscitation Status: DNR/DNI:Do Not Resuscitate/Intubate Smita Johnson PA-C Apr 01, 2017 09:54
[2017-04-01 12:13] VITALS: BP 103/66; PULSE 66; RESP 20; O2SAT 98
[2017-04-01] MEDS ORDERED: OXYC-530 PO (13:16)
[2017-04-01] MEDS ORDERED: CYCL10TA9 PO (13:16)
--- NOTE | 2017-04-01 13:22 | PCM.DIMED ---
Discharge Instructions Date of Service Apr 01, 2017 Dates of Hospitalization Mar 28, 2017 at 13:24 Discharge Diagnosis Discharge Diagnosis L knee I&D , HTN, Hyperlipidemia Medication Instructions Additional med instructions Please do not drive if taking pain meds Diet Discharge Diet: Heart Healthy Activity Discharge Activity: Outpatient Physical Therapy Call your provider Call your provider for: Fever or Chills, Shortness of breath, Bleeding, Chest pain, Vomitting, Excessive diarrhea, Weakness (unilateral), Other Patient Instructions Patient Instructions Weightbearing: Weightbearing as tolerated with walker DVT prophylaxis: aspirin 325 mg twice a day 6 weeks Physical therapy for transfers, progressive ambulation, therapeutic exercise Wound care: Dressing was changed yesterday. We appreciate the hospitalist care for this patient Intraoperative cultures are all negative so far. Discharge plan: Patient may be discharged home today. Patient will resume outpatient physical therapy. We will change her pain management to oxycodone 5- 10 mg every 4 hours and Flexeril 10 mg 3 times a day when necessary spasms. Please take flexeril twice a day for the first two days on schedule to stay ahead of pain , then take as needed. She does not need antibiotics at discharge since all cultures have been negative. Follow-up plan: In 2 weeks at [facility]3] with PA for wound check and keep the 05/[address] Greene with x-rays Follow-up plan Discharge plan: Patient may be discharged home today. Patient will resume outpatient physical therapy. We will change her pain management to oxycodone 5- 10 mg every 4 hours and Flexeril 10 mg 3 times a day when necessary spasms Follow-up plan: In 2 weeks at [facility]3] with PA for wound check and keep the 05/[address] Greene with x-rays F/U with PCP in one week F/U o/p PT/OT for 3 weeks Christine Leal DO Apr 01, 2017 13:22 Christine Leal DO Apr 01, 2017 13:22
[2017-04-01] MEDS ORDERED: ASPI325T32 PO ×2 (13:23→14:01)
--- NOTE | 2017-04-01 15:05 | NUR ---
Social Work: Discharge/Multidisciplinary Rounds D: EMR reviewed. Pt is on day 4 of hospitalization. Pt discussed in multidisciplinary rounds and is medically stable for discharge at this time. No SW needs identified during multidisciplinary rounds, no MD orders received. A: Pt who is independent at baseline P: Pt anticipated to discharge home with family to transport via POV. No SW needs identified, no MD orders received. TONY Castro
--- NOTE | 2017-04-01 16:19 | NUR ---
Discharge Pt. discharged to home via w/c in stable condition at 1600. Spouse present to drive. IV dc'd prior to discharge. All belongings, scripts and instructions sent with pt. No questions or concerns at this time.
--- NOTE | 2017-04-01 21:28 | PCM.DC.MED ---
Discharge Summary Date of Service Apr 01, 2017 Dates of Hospitalization Date of Hospital Admission Mar 28, 2017 at 13:24 Date of Discharge: Apr 01, 2017 Providers: Admitting Physician: Carl Martinez MD Primary Care Physician: Jenny Gustafson MD Attending Physician: Christine Morrow DO Diagnosis at Time of Discharge Diagnosis at Time of Discharge L knee I&D after L Knee TKA , HTN, Hyperlipidemia Consultations Ortho, PT/OT, ID Procedures XRay, CTs & MRIs US VEINOUS LEG DUPLEX UNILATERAL, LEFT IMPRESSION: No evidence of deep vein thrombosis involving the left lower extremity. Dictated by: Barbara Ba MD, PhD on 03/28/2017 at 12:01 X-RAY LEFT KNEE, THREE VIEWS IMPRESSION: No significant postoperative abnormality can be seen. Dictated by: Eric Katz M.D. on 03/28/2017 at 12:07 . Brief History Jazmín Lee is a 61-year-old female with a past medical history significant for hypertension, hyperlipidemia, and osteoarthritis who presents to [facility] emergency Department from her physical therapy office due to left knee pain. She had a successful left knee replacement on [address] Greene of orthopedic surgery. She was discharged on 2016. She reports that she had some soreness that she thought was routine for a total knee placement. However, on 03/25/2017 she began to experience increasing pain. She has had accompanying chills and headache. She denies dizziness, lightheadedness, sore throat, cough, chest pain, shortness of breath, fever, nausea, vomiting, dysuria, diarrhea or constipation. She has no history of blood clots. She has no other complaints at this time. Vital signs in the ER: Temperature 37.0. Pulse 70. Respiratory rate 16. Blood pressure 151/71. Pulse ox 97% on room air. She received ceftriaxone IV 2000 mg 1 and vancomycin with dosing per pharmacist. PCP is Dr. Jenny Gustafson. . Hospital Course Jazmín Lee is a 61-year-old female with a past medical history significant for hypertension, hyperlipidemia, and osteoarthritis who presents to [facility] emergency Department from her physical therapy office due to left knee pain. Acute septic./inflammed left knee, present on admission. s/p surgery Resolving - Patient underwent successful total knee replacement on 03/21/2017. Now presents with significant tenderness to palpation, erythema and edema with very little range of motion. Afebrile without leukocytosis. - ESR 64 and CRP 20.8 in the context of recent surgery. - Pro calcitonin elevated at 1.93. Trended down to 1.21. - Doppler ultrasound of left knee did not demonstrate any deep venous thrombosis , as above. - Started on Zosyn IV 3.375 g and vancomycin with dosing per pharmacist. Continue with zosyn as per ID's res - Continue hydrocodone 7.5-325 mg every 6 hours as needed for moderate pain and gabapentin 600 mg daily at bedtime. - Arthrocentesis revealed many WBCs and RBCs, this could be just blood,. Synovial fluid culture - no growth so far -- ID was consulted:" If all cultures are negative at several days, and it remains Dr. Greene's opinion that there was not infection, I would feel comfortable stopping all antibiotics once we have back theculture and PCR results." - surgery done 03/29, organized hematomas, some tissues was removed, cultures sent, if cultures negative, will drop abx -- As all cx remain neg, Ortho recommended discharge to home w/ o/p PT/OT. Patient will be discharged home. -- Pending cx from 03/28 aspirate, 03/29 surgery PCR are pending at this time. Chronic problems: Hypertension, present on admission. Stable. - Continue metoprolol succinate 100 mg every morning and 50 mg every afternoon. Hyperlipidemia, present on admission. Stable. - Continue atorvastatin 40 mg daily at bedtime. DNR/DNI post surgery PRN antiemetics: Zofran and Maalox. PRN bowel regimen: Senna and MiraLAX. PRN analgesics: Tylenol. Patient is admitted under inpatient status with expected length of stay greater than 2 midnights due to severity of presenting symptoms, risk of adverse event, and complexity of treatment plan. . Exam Vital Signs (Last) Date Time Temp Pulse Resp B/P Pulse Ox O2 Delivery O2 Flow Rate FiO2 04/01/17 12:13 36.7 66 20 103/66 98 Room Air 03/30/17 11:00 2.00 Exam General: Middle-aged female lying in bed and in mild distress Cardiovascular: Regular rate and rhythm without murmurs, rubs, or gallops appreciated. palpable pedal pulses Pulmonary: Clear to auscultation bilaterally without crackles, wheezes, or rhonchi. Normal respiratory effort with no use of increased WOB Abdomen: Soft, nontender, nondistended, bowel sounds present. Extremities: Right lower extremity without cyanosis, clubbing or erythema. Left lower extremity wrapped in bandage, circulation intact Neurological: No focal deficits Psych: No anxiety Test 03/28/17 11:15 03/28/17 13:27 03/28/17 17:41 03/28/17 18:27 Erythrocyte Sedimentation Rate 64mm/hr (0-40) Hemoglobin A1c 5.6% (4.8-5.6) C-Reactive Protein 20.8mg/dL (0.0-0.5) Hold Hackett Top Tube Received (Received) Hold Urine Received (Received) Body Fluid Source Synovial fluid Body Fluid Color Bloody (Clear) Body Fluid Appearance Turbid Body Fluid WBC 6250/mm3 Body Fluid RBC 300646/mm3 Body Fluid Polynuclear WBCs 94% Body Fluid Lymphocytes 3% Body Fluid Monocytes 3% Body Fluid Eosinophils 0% Body Fluid Basophils 0% Lactic Acid Level 0.9mmol/L (0.4-2.0) Test 03/29/17 10:35 03/30/17 01:20 03/30/17 04:57 04/01/17 05:21 Streptozyme 21.0IU/mL (0.0-200.0) Vancomycin Level Trough 15.9mcg/mL White Blood Count 8.2th/mm3 (3.8-10.1) Red Blood Count 2.69mil/mm3 (3.90-5.20) Mean Corpuscular Volume 102.6fL (81-100) Mean Corpuscular Hemoglobin 33.1pg (27.0-35.0) Mean Corpuscular Hemoglobin Concent 32.2% (32.0-37.0) Red Cell Distribution Width 12.6% (12.3-15.4) Platelet Count 514bil/L (150-400) Neutrophils (%) (Auto) 88.3% (40-74) Lymphocytes (%) (Auto) 8.1% (14-46) Monocytes (%) (Auto) 3.3% (4-12) Eosinophils (%) (Auto) 0% (0-5) Basophils (%) (Auto) 0.1% (0-3) Sodium Level 139mEq/L (134-144) Potassium Level 4.2mEq/L (3.5-5.2) Chloride Level 105mEq/L (97-108) Carbon Dioxide Level 22mmol/L (18-29) Blood Urea Nitrogen 7mg/dL (8-27) Creatinine 0.64mg/dL (0.57-1.00) Estimat Glomerular Filtration Rate 134mL/min (>59) Glucose Level 131mg/dL (60-99) Calcium Level 8.4mg/dL (8.5-10.1) Procalcitonin 0.77ng/mL (0.00-0.08) Hemoglobin 8.1g/dL (12.0-15.6) Hematocrit 26.0% (35.0-46.0) Discharge Medications Discharge Medications Aspirin (Aspirin) 325 Mg Tablet 325 MG PO BID Prescribed by: CHRISTINE MORROW DO Atorvastatin (Lipitor) 40 Mg Tablet 40 MG PO DAILY (Reported) Cholecalciferol (Vitamin D3) (Vitamin D) 1,000 Unit Capsule 1,000 UNIT PO DAILY (Reported) Gabapentin (Gabapentin) 600 Mg Tablet 600 MG PO HS (Reported) Metoprolol Succinate ER (Metoprolol Succinate ER) 100 Mg Tab.er.24h 100 MG PO QAM (Reported) Metoprolol Succinate ER (Metoprolol Succinate ER) 100 Mg Tab.er.24h 50 MG PO HS (Reported) As needed Cyclobenzaprine (Cyclobenzaprine) 10 Mg Tablet 10 MG PO TID PRN PRN For Spasm Prescribed by: CHRISTINE MORROW DO Docusate Sodium (Colace) 100 Mg Capsule 100 MG PO BID PRN PRN For Constipation ( Reported) Hydroxyzine Pamoate (HydrOXYzine Pamoate) 25 Mg Capsule 25 MG PO Q6H PRN PRN For Spasm and/or Restlessness Prescribed by: BARBIE GARZA Polyethylene Glycol 3350 (Miralax) 17 Gm Powd.pack 17 GM PO DAILY PRN PRN For Constipation (Reported) oxyCODONE (oxyCODONE) 5 Mg Tablet 5-10 MG PO Q4H PRN PRN For Severe Pain Prescribed by: CHRISTINE MORROW DO Additional med instructions Please do not drive if taking pain meds Followup Plan Follow-up plan Discharge plan: Patient may be discharged home today. Patient will resume outpatient physical therapy. We will change her pain management to oxycodone 5- 10 mg every 4 hours and Flexeril 10 mg 3 times a day when necessary spasms Follow-up plan: In 2 weeks at [facility] with PA for wound check and keep the 05/[address] Greene with x-rays F/U with PCP in one week F/U o/p PT/OT for 3 weeks Discharge Diet: Heart Healthy Discharge Activity: Outpatient Physical Therapy Patient Instructions Weightbearing: Weightbearing as tolerated with walker DVT prophylaxis: aspirin 325 mg twice a day 6 weeks Physical therapy for transfers, progressive ambulation, therapeutic exercise Wound care: Dressing was changed yesterday. We appreciate the hospitalist care for this patient Intraoperative cultures are all negative so far. Discharge plan: Patient may be discharged home today. Patient will resume outpatient physical therapy. We will change her pain management to oxycodone 5- 10 mg every 4 hours and Flexeril 10 mg 3 times a day when necessary spasms She does not need antibiotics at discharge since all cultures have been negative. Follow-up plan: In 2 weeks at [facility] with PA for wound check and keep the 05/[address] Greene with x-rays Time spent Greater than 30 minutes was spent in preparation of discharge with greater than 50% of that time dedicated to patient counseling and coordination of care. Christine Morrow DO Apr 01, 2017 14:01
== END 2017-04-01 15:50 | disposition home or self-care (01) | DRG 909 ==
LOC: SED 10:37 → OSC 13:24
PROVIDERS: ADMIT Internal Medicine; ATTEND Internal Medicine
PROC: 0SCD0ZZ Extirpation of Matter from Left Knee Joint, Open Approach (ICD-10-PCS; 2017-03-29)
PROC: 0SPD09Z Removal of Liner from Left Knee Joint, Open Approach (ICD-10-PCS; 2017-03-29)
PROC: 0S9D3ZX Drainage of Left Knee Joint, Percutaneous Approach, Diagnostic (ICD-10-PCS; 2017-03-29)
PROC: 0SUW09Z Supplement Left Knee Joint, Tibial Surface with Liner, Open Approach (ICD-10-PCS; principal; 2017-03-29 17:30)
DX: M96.840 Postprocedural hematoma of a musculoskeletal structure following a musculoskeletal system procedure (principal); I10 Essential (primary) hypertension; E78.5 Hyperlipidemia, unspecified; Z96.652 Presence of left artificial knee joint; Z96.642 Presence of left artificial hip joint